=== PATIENT | female | born 1960 | race Caucasian/White ===

== ENCOUNTER → 2017-04-09 | Outpatient (CLI) | payer BC, OTHER ==
--- NOTE | 2017-04-09 14:50 | XR ---
EXAMINATION TYPE: XR knee complete RT DATE OF EXAM: 04/09/2017 CLINICAL HISTORY: pain TECHNIQUE: Three views of the right knee are obtained. COMPARISON: None. FINDINGS: There is no acute fracture/dislocation. The tri-compartment joint spaces mildly narrowing noted at the medial tibiofemoral joint space and patellofemoral joint space. Mild intracondylar spur formation as well as spur formation about the margins of the femoral condyles. The overlying soft ti ssue appears unremarkable. IMPRESSION: There is no acute fracture or dislocation.ICD 10 NO FRACTURE, INITIAL EVALUATION
--- NOTE | 2017-04-09 14:50 | XR ---
EXAMINATION TYPE: XR pelvis AP view DATE OF EXAM: 04/09/2017 CLINICAL HISTORY: pain TECHNIQUE: Single view the pelvis is submitted. FINDINGS: No evidence for fracture, dislocation or bony lesion. Joint spaces are well-preserved. S I joints appear symmetric. IMPRESSION: 1. No acute fracture or dislocation seen. ICD 10 NO FRACTURE, INITIAL EVALUATION
== END | disposition home or self-care (01) ==
LOC: RADXRMAIN 14:18
PROVIDERS: ATTEND Emergency Medicine
DX: S83.91XA Sprain of unspecified site of right knee, initial encounter (principal); S80.01XA Contusion of right knee, initial encounter; S30.0XXA Contusion of lower back and pelvis, initial encounter
CPT/HCPCS: 72170

== ENCOUNTER → 2017-04-15 | Outpatient (CLI) | payer OTHER ==
--- NOTE | 2017-04-17 09:01 | MR ---
EXAMINATION TYPE: MR knee RT wo con DATE OF EXAM: 04/15/2017 COMPARISON: NONE HISTORY: Rt knee injury 1 week ago, fell on ice TECHNIQUE: Multiplanar, multisequence imaging of the right knee is performed without IV contrast. FINDINGS: There is a large Grullon's cyst measuring 5.7 x 3.2 x 2.0 cm within the popliteal fossa There is grade 3 abnormal signal involving the posterior horn of the medial meniscus compatible with a meniscal tear. Abnormal signal within the posterior horn of the lateral meniscus most typical of my xoid degeneration. Patellar and quadriceps tendons intact. Anterior cruciate and posterior cruciate ligaments intact. Lateral collateral ligament is intact. There is increased fluid surrounding the MCL compatible with g rade 1 strain. There is thinning of the patellar cartilage and evidence of focal defects involving both the medial a nd lateral femoral articular cartilage greater medially compatible with chondromalacia. Narrowing of the joint spaces are compatible with osteoarthritis. There is a 1.7 cm area of marrow edema involving the tibial plateau laterally. There is a subchondral fracture without evidence of depression.. IMPRESSION: 1. Marrow edema and findings compatible with subchondral fracture lateral tibial plateau with no evid ence of depression. 2. Osteoarthritis with chondromalacia as discussed above. 3. Posterior horn complex medial meniscal tear. 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 Subtle linear posterior horn lateral meniscus suspected. 5. Large popliteal fossa cyst with maximal dimension of 5.7 cm. 6. Grade 1 MCL sprain with no evidence of tear A [place] message has been communicated to Marcelo Lopez DO via the [employer] system on 04/17/2017 8:58 AM, Message ID [id number].
== END | disposition home or self-care (01) ==
LOC: RADMRIMAIN 21:25
PROVIDERS: ATTEND Emergency Medicine
DX: S83.411D Sprain of medial collateral ligament of right knee, subsequent encounter (principal); S83.231D Complex tear of medial meniscus, current injury, right knee, subsequent encounter; M17.11 Unilateral primary osteoarthritis, right knee; M94.261 Chondromalacia, right knee; M71.21 Synovial cyst of popliteal space [Baker], right knee

== ENCOUNTER → 2018-09-11 | Outpatient (CLI) | payer BC ==
--- NOTE | 2018-09-11 09:30 | US ---
EXAMINATION TYPE: US extremity nonvasc complt LT DATE OF EXAM: 09/11/2018 COMPARISON: NONE CLINICAL HISTORY: Outer Left Thigh, R22.40 swelling/lump. Left lump on thigh TECHNIQUE/FINDINGS: Targeted soft tissue ultrasound was performed of the left thigh in the area of th e palpable abnormality. There is a well circumscribed predominantly hyperechoic lesion seen correspon ding the palpable abnormality measuring 3.6 x 1.2 x 1.6 cm that is superficially located just deep to the skin surface within the subcutaneous tissues superficial to the muscle. No internal complexity i s seen nor internal vascular flow. IMPRESSION: Lipomatous lesion of the left thigh. If there is clinical increase in growth imaging cou ld be performed.
== END | disposition home or self-care (01) ==
LOC: RADUSWWP 07:38
PROVIDERS: ATTEND Nurse Practitioner Family
DX: R22.40 Localized swelling, mass and lump, unspecified lower limb (principal)

== ENCOUNTER → 2018-10-09 | Outpatient (CLI) | payer BC ==
--- NOTE | 2018-10-09 13:29 | MM ---
Reason for exam: screening (asymptomatic). Last mammogram was performed 3 years ago. History: Patient is postmenopausal and has history of other cancer at age 48. Family history of breast cancer in paternal grandmother at age 50. Reductions of both breasts, 2010. Took hormonal contraceptives for 1 year. Took other hormone for 1 month beginning at age 55. Physical Findings: A clinical breast exam by your physician is recommended on an annual basis and results should be correlated with mammographic findings. MG 3D Screening Mammo W/Cad Bilateral CC and MLO view(s) were taken. Prior study comparison: October 13, 2015, bilateral MG 3d screening mammo w/cad. February 01, 2012, right diagnostic mammogram w/CAD. The breast tissue is heterogeneously dense. This may lower the sensitivity of mammography. Finding #1: Architectural distortion in both breasts consistent with known reductions. Finding #2: There are typically benign calcifications in both breasts. There is a chronic nodularity in the left breast. ASSESSMENT: Benign, BI-RAD 2 RECOMMENDATION: Routine screening mammogram of both breasts in 1 year.
== END | disposition home or self-care (01) ==
LOC: RADMAMWWP 07:43
PROVIDERS: ATTEND Family Medicine
DX: Z12.31 Encounter for screening mammogram for malignant neoplasm of breast (principal)
CPT/HCPCS: 77063; 77067

== ENCOUNTER 2018-11-23 17:58 | Emergency (ER) | payer BC ==
--- NOTE | 2018-11-23 18:39 | ED ---
General Adult HPI - General Chief complaint: Upper Respiratory Infection Stated complaint: Bronchopneumonia Time Seen by Provider: 11/23/18 18:16 Source: patient Mode of arrival: ambulatory Limitations: no limitations - History of Present Illness Initial comments: Dictation was produced using [employer] dictation software. please excuse any grammatical, word or spelling errors. Chief Complaint: 58-year-old female presents with dyspnea. History of Present Illness: Enio is a 58-year-old female she has no known comorbidities. 3 days ago she was seen at her primary care physician's office. She was diagnosed with bronchopneumonia given prescription for doxycycline, Mucinex, Ventolin inhaler. Patient states she's been having URI type symptoms including shortness of breath, runny nose and sore throat. Patient was instructed to seek medical attention if her symptoms didn't improve in 2-3 days. Patient states that she does have shortness of breath that feels like it's worse when she is lying flat. As far she knows she does not have a history of cardiac disease or heart failure. He states that she's been having profuse runny nose. He has any lower extremity symptoms. No calf tenderness or calf pain, no popliteal pain or the thigh pain The ROS documented in this emergency department record has been reviewed and confirmed by me. Those systems with pertinent positive or negative responses have been documented in the HPI. All other systems are other negative and/or noncontributory. PHYSICAL EXAM: General Impression: Alert and oriented x3, not in acute distress HEENT: Normocephalic atraumatic, extra-ocular movements intact, pupils equal and reactive to light bilaterally, mucous membranes moist, mild pharyngeal erythema Cardiovascular: Heart regular rate and rhythm, S1&S2 audible, no murmurs, rubs or gallops Chest: Lungs clear to auscultation bilaterally, no rhonchi, no wheeze, no rales Abdomen: Bowel sounds present, abdomen soft, non-tender, non-distended, no organomegaly Musculoskeletal: Pulses present and equal in all extremities, no peripheral edema Motor: no focal deficits noted Neurological: CN II-XII grossly intact, no focal motor or sensory deficits noted Skin: Intact with no visualized rashes Psych: Normal affect and mood ED course: 58 yo F presents with dyspnea. She was recently treated for diagnosis of bronchopneumonia she is given prescription for doxycycline, Ventolin. She's also been taking [id number] cold medicine. Vital signs upon arrival are within acceptable limits. X-rays unremarkable. Prematurity peptide is unremarkable. Patient requested DuoNeb treatment. Patient given DuoNeb with slight improvement of symptoms. Patient's clinical presentation likely secondary to viral URI. Because patient doxycycline persistent symptoms we will change her antibiotics to azithromycin. Patient told to follow-up with primary care physician upon discharge. - Related Data Home Medications Medication Instructions Recorded Confirmed Albuterol Inhaler [Ventolin Hfa 1 - 2 puff INHALATION RT-Q4H PRN 11/23/1811/23 Inhaler] Doxycycline Monohydrate [Monodox] 100 mg PO BID 11/23/18 11/23/18 Guaifen/Dextromethorphan/PE 20 ml PO Q6H PRN 11/23/18 11/23/18 [Mucinex Fast-Max Congest-Cough] methylPREDNISolone [Medrol Dose See Taper PO DIRECTED 11/23/18 11/23/18 Pack] Previous Rx's Medication Instructions Recorded Azithromycin [Zithromax Z-pack] 0 mg PO DIRECTED #6 tab 11/23/18 Allergies Allergy/AdvReac Type Severity Reaction Status Date / Time amoxicillin Allergy Rash/Hives Verified 11/23/18 18:36 Review of Systems ROS Statement: Those systems with pertinent positive or pertinent negative responses have been documented in the HPI. ROS Other: All systems not noted in ROS Statement are negative. Past Medical History Past Medical History: No Reported History History of Any Multi-Drug Resistant Organisms: None Reported Past Surgical History: Section, Orthopedic Surgery Additional Past Surgical History / Comment(s): breast reduction Past Psychological History: No Psychological Hx Reported Smoking Status: Never smoker Past Alcohol Use History: Occasional Past Drug Use History: None Reported General Exam Limitations: no limitations Course Vital Signs 11/23/18 11/23/18 11/23/18 18:09 20:03 20:09 Temperature 98.4 F Pulse Rate 66 69 70 Respiratory 18 Rate Blood Pressure 155/87 O2 Sat by Pulse 96 Oximetry 11/23/18 20:31 Temperature 98.2 F Pulse Rate 81 Respiratory 17 Rate Blood Pressure 135/73 O2 Sat by Pulse 96 Oximetry Medical Decision Making - Lab Data Lab Results 11/23/18 Range/Units 19:00 NT-Pro-B Natriuret Pep 95 pg/mL Disposition Clinical Impression: Common cold Disposition: HOME SELF-CARE Condition: Good Instructions (If sedation given, give patient instructions): Upper Respiratory Infection (ED) Prescriptions: Azithromycin [Zithromax Z-pack] 0 mg PO DIRECTED #6 tab Is patient prescribed a controlled substance at d/c from ED?: No Referrals: José Antonio Tamayo MD [Primary Care Provider] - 1-2 days Time of Disposition: 20:36
[2018-11-23] MEDS ORDERED: IPRATROPIUM-ALBUTEROL 3 ML NEB INHALATION STA (19:28)
--- NOTE | 2018-11-23 19:29 | XR ---
EXAMINATION TYPE: XR chest 2V DATE OF EXAM: 11/23/2018 COMPARISON: 07/25/2014 HISTORY: Chest pain TECHNIQUE: Frontal and lateral views of the chest are obtained. FINDINGS: Heart and mediastinum are normal. Lungs are clear. Diaphragm is normal. Bony thorax is nor mal. IMPRESSION: Normal chest. No change.
[2018-11-23 21:03] VITALS: BP 162/82; PULSE 78; RESP 18; TEMP 98.3
== END 2018-11-23 21:00 | disposition home or self-care (01) ==
LOC: EC 17:58
DX: J00 Acute nasopharyngitis [common cold] (principal); Z98.890 Other specified postprocedural states; Z87.01 Personal history of pneumonia (recurrent); Z79.52 Long term (current) use of systemic steroids; Z88.0 Allergy status to penicillin
CPT/HCPCS: 36415; 71046; 83880; 94640; 99285

== ENCOUNTER → 2018-12-22 | Outpatient (CLI) | payer BC ==
--- NOTE | 2018-12-23 09:07 | US ---
EXAMINATION TYPE: US pelvic complete DATE OF EXAM: 12/22/2018 COMPARISON: NONE CLINICAL HISTORY: R10.2 Pelvic Pain. patient states no pain, noticed pink spots wiping after urinatin g for 1 week, x 2 TECHNIQUE: TA. Transabdominal sonographic images of the pelvis were acquired. Patient did not want TV Date of LMP: 4 years ago EXAM MEASUREMENTS: Uterus: 7.7 x 5.4 x 3.1 cm Endometrial Stripe: 0.6 cm Right Ovary: 2.1 x 2.2 x 2.1 cm Left Ovary: 1.6 x 1.7 x 1.6 cm 1. Uterus: Retroverted wnl 2. Endometrium: wnl 3. Right Ovary: wnl 4. Left Ovary: wnl 5. Bilateral Adnexa: wnl 6. Posterior cul-de-sac: wnl IMPRESSION: Endometrial thickness is upper limits of normal for a postmenopausal female measuring 0.6 cm. Ovaries are slightly atrophic but within normal limits for the patient's age.
== END | disposition home or self-care (01) ==
LOC: RADUSWWP 15:37
PROVIDERS: ATTEND Family Medicine
DX: R10.2 Pelvic and perineal pain (principal); Z78.0 Asymptomatic menopausal state
CPT/HCPCS: 76856

== ENCOUNTER 2019-08-01 16:35 | Emergency (ER) | payer BC ==
[2019-08-01 17:12] LABS: Appearance,Urine Clear (Clear); Bilirubin,Urine Negative (Negative); Blood,Urine Negative (Negative); Color,Urine Light Yellow; Glucose,Urine (UA) Negative (Negative); Ketones,Urine Negative (Negative); Leukocyte Esterase,Urine Negative (Negative); Nitrite,Urine Negative (Negative); PH, Urine 5.5 (5.0-8.0); Protein,Urine Negative (Negative); Specific Gravity,Urine 1.009 (1.001-1.035); Urobilinogen,Urine <2.0 mg/dL (<2.0)
--- NOTE | 2019-08-01 17:23 | ED ---
Fever HPI - General Chief Complaint: Fever Stated Complaint: Fever Time Seen by Provider: 08/01/19 17:02 Source: patient Mode of arrival: ambulatory Limitations: no limitations - History of Present Illness Initial Comments: DD 9-year-old female history of melanoma in remission presents emergency department today for chief complaint of fever. Patient states she's had fever since Saturday of this week. She states that she really had nose associates sympt oms she states the first day she had a very slight headache she denied neck stiffness photophobia nausea vomiting. Patient denied any diarrhea or cough. Patient states she did not have abdominal pain, vaginal discharge or pelvic pain or rashes. Denies recent travel or positive sick contacts. Patient states that she has been working from home. Patient denies chest pain or shortness of breath. Patient denies dysuria urgency or frequency. Patient states he Tmax was on Saturday at 104F, shes states she took a lot of motrin and tylenol, she states she attempted to wean off the tylenol and motrin to see if the fever had resolved last night and it picked up to 100-101F. Patient states she really does not have significant chills, she states at times she has aching sensation in her hands b/l. Denies tick contact. Patient has no additional complaints, and states she doesnt know why she has a fever and that is why she came to the ER today. Remaining ROS (-). Upon arrival patient appears very well, no acute distress. Afebrile, BP elevated. - Related Data Home Medications Medication Instructions Recorded Confirmed Acetaminophen Tab [Tylenol Tab] 1,000 mg PO Q4H PRN 08/01/19 08/01/19 Ibuprofen 400 mg PO Q4H PRN 08/01/19 08/01/19 Allergies Allergy/AdvReac Type Severity Reaction Status Date / Time amoxicillin Allergy Rash/Hives Verified 08/01/19 18:44 Review of Systems ROS Statement: Those systems with pertinent positive or pertinent negative responses have been documented in the HPI. ROS Other: All systems not noted in ROS Statement are negative. Past Medical History Past Medical History: No Reported History, Cancer Additional Past Medical History / Comment(s): melanomia right thigh History of Any Multi-Drug Resistant Organisms: None Reported Past Surgical History: Section, Orthopedic Surgery Additional Past Surgical History / Comment(s): breast reduction Past Psychological History: No Psychological Hx Reported Smoking Status: Never smoker Past Alcohol Use History: Occasional Past Drug Use History: None Reported General Exam - General Exam Comments Initial Comments: General: The patient is awake and alert, in no distress, and does not appear acutely ill. Eye: +3 mm pupils are equal, round and reactive to light, extra-ocular movements are intact. No nystagmus. There is normal conjunctiva bilaterally. No signs of icterus. Ears, nose, mouth and throat: There are moist mucous membranes and no oral lesions. Neck: The neck is supple, there is no tenderness or JVD. Cardiovascular: There is a regular rate and rhythm. No murmur, rub or gallop is appreciated. Respiratory: Lungs are clear to auscultation, respirations are non-labored, breath sounds are equal. No wheezes, stridor, rales, or rhonchi. Gastrointestinal: Soft, non-distended, non-tender abdomen without masses or organomegaly noted. There is no rebound or guarding present. Musculoskeletal: Normal ROM, no tenderness. Strength 5/5. Sensation intact. Pulses equal bilaterally 2+. Neurological: A&O x 3. CN II-XII intact grossly, There are no obvious motor or sensory deficits. Coordination appears grossly intact. Speech is normal. Skin: Skin is warm and dry and no rashes or lesions are noted. No LE edema. Psychiatric: Cooperative, appropriate mood & affect, normal judgment. Limitations: no limitations Course Vital Signs 08/01/19 08/01/19 08/01/19 16:44 16:59 17:48 Temperature 98.5 F 99.0 F Pulse Rate 89 72 Respiratory 18 18 16 Rate Blood Pressure 172/106 166/90 O2 Sat by Pulse 99 97 Oximetry 08/01/19 19:45 Temperature 99.2 F Pulse Rate 78 Respiratory 16 Rate Blood Pressure 154/104 O2 Sat by Pulse 97 Oximetry Medical Decision Making - Medical Decision Making CXR clear. Lungs clear. Heart sounds WNL. No focalizing symptoms. Abdomen soft nontender. No skin complaints or noted abnormalities. Denies vaginal or pelvic concerns. UA unremarkable. Reactive lymphocytes on labs. No nuchal rigidity negative Brudzinski negative Kernig. Headache was 5 days ago resolved, not sudden onset or worse SAHU of life. Patient EKG no acute findings. Troponin (-). Liver enzymes elevated, US (-) for duct dilation/stone/infection. After discussing case wtih Dr. Staton we will test patient for Covid and have her f/u with PCP. Rh factor pending (obtained secondary to some hand aching). Patient is aware of importance of f/u and return for worsening or persistent symptoms or development of focal symptoms. Patient discharged appearing well. BP elevated but she states it high at Dr. Office, asymptomatic therefore will have keep log and f/u wtih PCP. - Lab Data Result diagrams: 08/01/19 17:36 08/01/19 17:36 Lab Results 08/01/19 08/01/19 08/01/19 Range/Units 17:02 17:36 17:36 WBC 5.8 (3.8-10.6) k/uL RBC 5.26 (3.80-5.40) m/uL Hgb 14.7 (11.4-16.0) gm/dL Hct 43.7 (34.0-46.0) % MCV 83.2 (80.0-100.0) fL MCH 28.0 (25.0-35.0) pg MCHC 33.6 (31.0-37.0) g/dL RDW 14.4 (11.5-15.5) % Plt Count 159 (150-450) k/uL Neutrophils % (Manual) 35 % Band Neutrophils % 9 % Lymphocytes % (Manual) 44 % Monocytes % (Manual) 10 % Eosinophils % (Manual) 2 % Neutrophils # (Manual) 2.50 (1.3-7.7) k/uL Lymphocytes # (Manual) 2.55 (1.0-4.8) k/uL Monocytes # (Manual) 0.58 (0-1.0) k/uL Eosinophils # (Manual) 0.12 (0-0.7) k/uL Nucleated RBCs 0 (0-0) /100 WBC Manual Slide Review Performed Reactive Lymphocytes Present Sodium 136 L (137-145) mmol/L Potassium 4.4 (3.5-5.1) mmol/L Chloride 101 (98-107) mmol/L Carbon Dioxide 27 (22-30) mmol/L Anion Gap 8 mmol/L BUN 11 (7-17) mg/dL Creatinine 0.62 (0.52-1.04) mg/dL Est GFR (CKD-EPI)AfAm >90 (>60 ml/min/1.73 sqM) Est GFR (CKD-EPI)NonAf >90 (>60 ml/min/1.73 sqM) Glucose 104 H (74-99) mg/dL Plasma Lactic Acid Dorian (0.7-2.0) mmol/L Calcium 9.2 (8.4-10.2) mg/dL Total Bilirubin 0.4 (0.2-1.3) mg/dL AST 102 H (14-36) U/L ALT 101 H (4-34) U/L Alkaline Phosphatase 131 H (38-126) U/L Troponin I (0.000-0.034) ng/mL C-Reactive Protein 36.1 H (<10.0) mg/L Total Protein 7.8 (6.3-8.2) g/dL Albumin 4.4 (3.5-5.0) g/dL Urine Color Light Yellow Urine Appearance Clear (Clear) Urine pH 5.5 (5.0-8.0) Ur Specific [place] 1.009 (1.001-1.035) Urine Protein Negative (Negative) Urine Glucose (UA) Negative (Negative) Urine Ketones Negative (Negative) Urine Blood Negative (Negative) Urine Nitrite Negative (Negative) Urine Bilirubin Negative (Negative) Urine Urobilinogen <2.0 (<2.0) mg/dL Ur Leukocyte Esterase Negative (Negative) Heterophile Antibody (Negative) 08/01/19 08/01/19 08/01/19 Range/Units 17:36 17:36 17:36 WBC (3.8-10.6) k/uL RBC (3.80-5.40) m/uL Hgb (11.4-16.0) gm/dL Hct (34.0-46.0) % MCV (80.0-100.0) fL MCH (25.0-35.0) pg MCHC (31.0-37.0) g/dL RDW (11.5-15.5) % Plt Count (150-450) k/uL Neutrophils % (Manual) % Band Neutrophils % % Lymphocytes % (Manual) % Monocytes % (Manual) % Eosinophils % (Manual) % Neutrophils # (Manual) (1.3-7.7) k/uL Lymphocytes # (Manual) (1.0-4.8) k/uL Monocytes # (Manual) (0-1.0) k/uL Eosinophils # (Manual) (0-0.7) k/uL Nucleated RBCs (0-0) /100 WBC Manual Slide Review Reactive Lymphocytes Sodium (137-145) mmol/L Potassium (3.5-5.1) mmol/L Chloride (98-107) mmol/L Carbon Dioxide (22-30) mmol/L Anion Gap mmol/L BUN (7-17) mg/dL Creatinine (0.52-1.04) mg/dL Est GFR (CKD-EPI)AfAm (>60 ml/min/1.73 sqM) Est GFR (CKD-EPI)NonAf (>60 ml/min/1.73 sqM) Glucose (74-99) mg/dL Plasma Lactic Acid Dorian 1.2 (0.7-2.0) mmol/L Calcium (8.4-10.2) mg/dL Total Bilirubin (0.2-1.3) mg/dL AST (14-36) U/L ALT (4-34) U/L Alkaline Phosphatase (38-126) U/L Troponin I <0.012 (0.000-0.034) ng/mL C-Reactive Protein (<10.0) mg/L Total Protein (6.3-8.2) g/dL Albumin (3.5-5.0) g/dL Urine Color Urine Appearance (Clear) Urine pH (5.0-8.0) Ur Specific [place] (1.001-1.035) Urine Protein (Negative) Urine Glucose (UA) (Negative) Urine Ketones (Negative) Urine Blood (Negative) Urine Nitrite (Negative) Urine Bilirubin (Negative) Urine Urobilinogen (<2.0) mg/dL Ur Leukocyte Esterase (Negative) Heterophile Antibody Negative (Negative) Disposition Clinical Impression: Fever of unknown origin, High blood pressure, Elevated liver enzymes Disposition: HOME SELF-CARE Condition: Good Instructions (If sedation given, give patient instructions): Fever in Adults (ED) Additional Instructions: Please use medication as discussed. Please follow-up with family doctor in the next 24-48 hours, would like repeat labs at this time. Please return to emergency room if the symptoms increase or worsen or for any other concerns. Is patient prescribed a controlled substance at d/c from ED?: No Referrals: José Antonio Tamayo MD [Primary Care Provider] - 1-2 days Time of Disposition: 19:36
[2019-08-01 18:05] LABS: ALT 101 U/L (4-34); AST 102 U/L (14-36); African American GFR (CKD) >90 (>60 ml/min/1.73 sqM); Albumin 4.4 g/dL (3.5-5.0); Alkaline Phosphatase 131 U/L (38-126); Anion Gap 8 mmol/L; Blood Urea Nitrogen 11 mg/dL (7-17); C Reactive Protein 36.1 mg/L (<10.0); Calcium 9.2 mg/dL (8.4-10.2); Carbon Dioxide 27 mmol/L (22-30); Chloride 101 mmol/L (98-107); Glucose 104 mg/dL (74-99); Non-African American GFR(CKD) >90 (>60 ml/min/1.73 sqM); Potassium 4.4 mmol/L (3.5-5.1); Sodium 136 mmol/L (137-145); Total Bilirubin 0.4 mg/dL (0.2-1.3); Total Protein 7.8 g/dL (6.3-8.2)
[2019-08-01 18:08] LABS: HCT 43.7 % (34.0-46.0); HGB 14.7 gm/dL (11.4-16.0); MCHC 33.6 g/dL (31.0-37.0); MCV 83.2 fL (80.0-100.0); Mean Platelet Volume 6.9; Platelet Count 159 k/uL (150-450); RBC 5.26 m/uL (3.80-5.40); RDW 14.4 % (11.5-15.5); WBC 5.8 k/uL (3.8-10.6)
[2019-08-01 18:33] LABS: Band Neutrophils % 9 %; Eosinophils # (M) 0.12 k/uL (0-0.7); Lymphocytes # (M) 2.55 k/uL (1.0-4.8); Monocytes # (M) 0.58 k/uL (0-1.0); Neutrophils % (M) 35 %; Nucleated Red Blood Cells 0 /100 WBC (0-0); Reactive Lymphocytes Present; Total Cells Counted 100
[2019-08-01] MEDS ORDERED: ACETAMINOPHEN TAB 325 MG TAB PO STA (18:49)
--- NOTE | 2019-08-01 18:56 | XR ---
EXAMINATION TYPE: XR chest 2V DATE OF EXAM: 08/01/2019 COMPARISON: 11/23/2018 HISTORY: Fever. Weakness TECHNIQUE: 2 views FINDINGS: Heart and mediastinum are normal. Lungs are clear. Diaphragm is normal. Bony thorax appears normal. IMPRESSION: Normal chest. No change.
[2019-08-01 19:10] VITALS: RESP 16
--- NOTE | 2019-08-01 19:31 | US ---
EXAMINATION TYPE: US abdomen limited DATE OF EXAM: 08/01/2019 COMPARISON: NONE CLINICAL HISTORY: RUQ, elevated enzymes, fever. RUQ pain. Patient states having a fever for 7 days EXAM MEASUREMENTS: Liver Length: 19.2 cm Gallbladder Wall: 0.2 cm CBD: 0.3 cm Right Kidney: 10.0 x 5.6 x 5.3 cm Pancreas: Appears echogenic, limited visualization of tail due to overlying bowel gas Liver: Appears enlarged in size. Gallbladder: No stones seen Evidence for sonographic Marrero's sign: neg CBD: wnl Right Kidney: No hydronephrosis or masses seen IMPRESSION: Negative right upper quadrant abdominal sonogram. No gallstones or dilated ducts. No free fluid.
[2019-08-01 19:59] VITALS: BP 154/104; PULSE 78; TEMP 99.2
== END 2019-08-01 19:58 | disposition home or self-care (01) ==
LOC: EC 16:35
DX: R50.9 Fever, unspecified (principal); R03.0 Elevated blood-pressure reading, without diagnosis of hypertension; R74.8 Abnormal levels of other serum enzymes; Z20.828 Contact with and (suspected) exposure to other viral communicable diseases; Z85.820 Personal history of malignant melanoma of skin; Z88.0 Allergy status to penicillin
CPT/HCPCS: 36415; 93005; 80053; 83605; 84484; 85025; 86140; 86308; 86431; 81003; 87040; 71046; 76705; 99284; U0003

== ENCOUNTER 2019-08-05 14:59 | Inpatient (IN) | payer BC ==
[2019-08-05] MEDS ORDERED: KETOROLAC 30 MG/ML 1 ML VIAL IVP STA (15:28)
[2019-08-05] MEDS ORDERED: PANTOPRAZOLE 40 MG/10 ML VIAL IVP STA (15:28)
[2019-08-05] MEDS ORDERED: SODIUM CHLORIDE 0.9% 1,000 ML IV STA ×2 (15:28)
[2019-08-05] MEDS ORDERED: ONDANSETRON 4 MG/2 ML VIAL IVP STA (15:28)
[2019-08-05] MEDS ORDERED: HYDROmorphone 0.5 MG/0.5 ML SYRINGE IVP STA (15:28)
--- NOTE | 2019-08-05 15:32 | ED ---
Abdominal Pain HPI - General Source: patient, RN notes reviewed, old records reviewed Mode of arrival: ambulatory Limitations: no limitations <Radha Rogers - Last Filed: 08/05/19 18:49> <Nika Staton - Last Filed: 08/10/19 04:11> - General Chief Complaint: Abdominal Pain Stated Complaint: Revisit Fever Time Seen by Provider: 08/05/19 15:08 - History of Present Illness Initial Comments: Patient is a 59-year-old female who presents emergency room today for reevaluation for persistent fever for 9 days. She also is complaining of right upper quadrant abdominal pain. Patient reports that she was initially seen emergency Department chief concern she had Coban. She was tested negative. She also reported that she had elevated liver enzymes at that time. She reports that the right upper quadrant pain is worse proximally an hour after eating and radiation towards her back. She denies any associated chest pain or shortness of breath at this time. (Radha Rogers) - Related Data Home Medications Medication Instructions Recorded Confirmed Ibuprofen 400 mg PO Q4H PRN 08/01/19 08/05/19 Allergies Allergy/AdvReac Type Severity Reaction Status Date / Time amoxicillin Allergy Rash/Hives Verified 08/05/19 19:58 Review of Systems ROS Other: All systems not noted in ROS Statement are negative. <Radha Rogers - Last Filed: 08/05/19 18:49> ROS Other: All systems not noted in ROS Statement are negative. <Nika Staton - Last Filed: 08/10/19 04:11> ROS Statement: Those systems with pertinent positive or pertinent negative responses have been documented in the HPI. Past Medical History Past Medical History: No Reported History, Cancer Additional Past Medical History / Comment(s): melanomia right thigh History of Any Multi-Drug Resistant Organisms: None Reported Past Surgical History: Section, Orthopedic Surgery Additional Past Surgical History / Comment(s): breast reduction Past Psychological History: No Psychological Hx Reported Smoking Status: Never smoker Past Alcohol Use History: Occasional Past Drug Use History: None Reported <Radha Rogers - Last Filed: 08/05/19 18:49> General Exam Limitations: no limitations General appearance: alert, in no apparent distress Head exam: Present: atraumatic, normocephalic, normal inspection Eye exam: Present: normal appearance, PERRL, EOMI. Absent: scleral icterus, conjunctival injection, periorbital swelling ENT exam: Present: normal exam, mucous membranes moist Neck exam: Present: normal inspection. Absent: tenderness, meningismus, lymphadenopathy Respiratory exam: Present: normal lung sounds bilaterally. Absent: respiratory distress, wheezes, rales, rhonchi, stridor Cardiovascular Exam: Present: regular rate, normal rhythm, normal heart sounds. Absent: systolic murmur, diastolic murmur, rubs, gallop, clicks GI/Abdominal exam: Present: tenderness (Right upper quadrant tenderness), normal bowel sounds. Absent: distended, guarding, rebound, rigid Extremities exam: Present: normal inspection Back exam: Present: normal inspection Neurological exam: Present: alert, oriented X3, CN II-XII intact Psychiatric exam: Present: normal affect, normal mood Skin exam: Present: warm, dry, intact, normal color. Absent: rash <Radha Rogers - Last Filed: 08/05/19 18:49> - General Exam Comments Initial Comments: 59-year-old female. Alert and oriented 3. (Radha Rogers) Course Vital Signs 08/05/19 08/05/19 08/05/19 15:01 18:40 18:43 Temperature 99.3 F 98.5 F Pulse Rate 84 82 Pulse Rate [ Pulse Oximetery ] Respiratory 18 16 Rate Blood Pressure 145/83 137/82 Blood Pressure [Left Arm] O2 Sat by Pulse 94 L 97 Oximetry 08/05/19 19:06 Temperature 100 F H Pulse Rate Pulse Rate [ 92 Pulse Oximetery ] Respiratory 19 Rate Blood Pressure Blood Pressure 131/61 [Left Arm] O2 Sat by Pulse 97 Oximetry Medical Decision Making - Lab Data Result diagrams: 08/05/19 16:00 08/05/19 16:00 - Radiology Data Radiology results: report reviewed <Radha Rogers - Last Filed: 08/05/19 18:49> - Lab Data Result diagrams: 08/09/19 06:51 08/09/19 06:51 <Nika Staton - Last Filed: 08/10/19 04:11> - Medical Decision Making This is a 59-year-old female who presents emergency department today for 9 days of fevers, with complaints of right upper quadrant abdominal pain. Patient's liver enzymes are 3 times from her visit on 07/31. At this time patient's CBC is unremarkable. She had negative Coban swab at that time. Patient had CT on pe lvis which showed inflammatory changes around the liver with no ductal dilation. I did add an acute hepatitis panel. The patient's consistent right upper quadrant pain and persistent fevers discussed admitting the Patient for further evaluation. I discussed the case with Dr. Espinal and Dr. Staton whom agree. (Radha Rogers) I was available for consultation in the emergency department. The history and physical exam were done by the midlevel provider. I was consulted for this patients care. I reviewed the case with the midlevel provider and based on their presentation of the patient, I agree with the assessment, medical decision making and plan of care as documented. Chart was dictated using [employer] dictation software. Attempts were made to correct any dictation errors however some typographical errors may persist. (Nika Staton) - Lab Data Lab Results 08/05/19 08/05/19 08/05/19 Range/Units 16:00 16:00 16:00 WBC 6.4 (3.8-10.6) k/uL RBC 4.82 (3.80-5.40) m/uL Hgb 13.3 (11.4-16.0) gm/dL Hct 40.9 (34.0-46.0) % MCV 84.8 (80.0-100.0) fL MCH 27.6 (25.0-35.0) pg MCHC 32.6 (31.0-37.0) g/dL RDW 15.1 (11.5-15.5) % Plt Count 189 (150-450) k/uL Neutrophils % (Manual) 40 % Lymphocytes % (Manual) 50 % Monocytes % (Manual) 8 % Eosinophils % (Manual) 2 % Neutrophils # (Manual) 2.56 (1.3-7.7) k/uL Lymphocytes # (Manual) 3.20 (1.0-4.8) k/uL Monocytes # (Manual) 0.51 (0-1.0) k/uL Eosinophils # (Manual) 0.13 (0-0.7) k/uL Nucleated RBCs 0 (0-0) /100 WBC Manual Slide Review Performed Pathologist Review See comment A PT 10.0 (9.0-12.0) sec INR 1.0 (<1.2) APTT 26.7 (22.0-30.0) sec D-Dimer 1.15 H (<0.60) mg/L FEU Sodium (137-145) mmol/L Potassium (3.5-5.1) mmol/L Chloride (98-107) mmol/L Carbon Dioxide (22-30) mmol/L Anion Gap mmol/L BUN (7-17) mg/dL Creatinine (0.52-1.04) mg/dL Est GFR (CKD-EPI)AfAm (>60 ml/min/1.73 sqM) Est GFR (CKD-EPI)NonAf (>60 ml/min/1.73 sqM) Glucose (74-99) mg/dL Plasma Lactic Acid Dorian (0.7-2.0) mmol/L Calcium (8.4-10.2) mg/dL Total Bilirubin (0.2-1.3) mg/dL AST (14-36) U/L ALT (4-34) U/L Alkaline Phosphatase (38-126) U/L Total Protein (6.3-8.2) g/dL Albumin (3.5-5.0) g/dL Amylase (30-110) U/L Lipase (23-300) U/L Urine Color Yellow Urine Appearance Clear (Clear) Urine pH 6.5 (5.0-8.0) Ur Specific [place] 1.017 (1.001-1.035) Urine Protein Trace H (Negative) Urine Glucose (UA) Negative (Negative) Urine Ketones Negative (Negative) Urine Blood Negative (Negative) Urine Nitrite Negative (Negative) Urine Bilirubin Negative (Negative) Urine Urobilinogen 2.0 (<2.0) mg/dL Ur Leukocyte Esterase Negative (Negative) Acetaminophen ug/mL Coronavirus (PCR) (Not Detected) CMV IgG Ab (Non-Reactive) CMV IgM Ab (Non-Reactive) EBV Capsid Ag IgG Ab AI EBV Capsid Ag IgG Intrp (NEGATIVE) EBV Capsid Ag IgM Ab AI EBV Capsid Ag IgM Intrp (NEGATIVE) EBV Early Antigen IgG AI EBV EA IgG Ab Interp (NEGATIVE) EBV Nuclear Ag IgG Ab AI EBV Nuc Ag IgG Interp (NEGATIVE) Hepatitis A IgM Ab Hep Bs Antigen (Non-Reactive) Hep B Core IgM Ab (Non-Reactive) Hep C IgG Ab (Non-Reactive) Heterophile Antibody (Negative) 08/05/19 08/05/19 08/05/19 Range/Units 16:00 16:00 16:00 WBC (3.8-10.6) k/uL RBC (3.80-5.40) m/uL Hgb (11.4-16.0) gm/dL Hct (34.0-46.0) % MCV (80.0-100.0) fL MCH (25.0-35.0) pg MCHC (31.0-37.0) g/dL RDW (11.5-15.5) % Plt Count (150-450) k/uL Neutrophils % (Manual) % Lymphocytes % (Manual) % Monocytes % (Manual) % Eosinophils % (Manual) % Neutrophils # (Manual) (1.3-7.7) k/uL Lymphocytes # (Manual) (1.0-4.8) k/uL Monocytes # (Manual) (0-1.0) k/uL Eosinophils # (Manual) (0-0.7) k/uL Nucleated RBCs (0-0) /100 WBC Manual Slide Review Pathologist Review PT (9.0-12.0) sec INR (<1.2) APTT (22.0-30.0) sec D-Dimer (<0.60) mg/L FEU Sodium 135 L (137-145) mmol/L Potassium 4.4 (3.5-5.1) mmol/L Chloride 102 (98-107) mmol/L Carbon Dioxide 26 (22-30) mmol/L Anion Gap 7 mmol/L BUN 11 (7-17) mg/dL Creatinine 0.67 (0.52-1.04) mg/dL Est GFR (CKD-EPI)AfAm >90 (>60 ml/min/1.73 sqM) Est GFR (CKD-EPI)NonAf >90 (>60 ml/min/1.73 sqM) Glucose 105 H (74-99) mg/dL Plasma Lactic Acid Dorian 1.0 (0.7-2.0) mmol/L Calcium 8.7 (8.4-10.2) mg/dL Total Bilirubin 0.8 (0.2-1.3) mg/dL AST 324 H (14-36) U/L ALT 382 H (4-34) U/L Alkaline Phosphatase 237 H (38-126) U/L Total Protein 7.5 (6.3-8.2) g/dL Albumin 4.0 (3.5-5.0) g/dL Amylase 48 (30-110) U/L Lipase 175 (23-300) U/L Urine Color Urine Appearance (Clear) Urine pH (5.0-8.0) Ur Specific [place] (1.001-1.035) Urine Protein (Negative) Urine Glucose (UA) (Negative) Urine Ketones (Negative) Urine Blood (Negative) Urine Nitrite (Negative) Urine Bilirubin (Negative) Urine Urobilinogen (<2.0) mg/dL Ur Leukocyte Esterase (Negative) Acetaminophen ug/mL Coronavirus (PCR) (Not Detected) CMV IgG Ab (Non-Reactive) CMV IgM Ab (Non-Reactive) EBV Capsid Ag IgG Ab AI EBV Capsid Ag IgG Intrp (NEGATIVE) EBV Capsid Ag IgM Ab AI EBV Capsid Ag IgM Intrp (NEGATIVE) EBV Early Antigen IgG AI EBV EA IgG Ab Interp (NEGATIVE) EBV Nuclear Ag IgG Ab AI EBV Nuc Ag IgG Interp (NEGATIVE) Hepatitis A IgM Ab Hep Bs Antigen Non-Reactive (Non-Reactive) Hep B Core IgM Ab Non-Reactive (Non-Reactive) Hep C IgG Ab Non-Reactive (Non-Reactive) Heterophile Antibody (Negative) 08/05/19 08/05/19 08/05/19 Range/Units 16:00 17:51 19:11 WBC (3.8-10.6) k/uL RBC (3.80-5.40) m/uL Hgb (11.4-16.0) gm/dL Hct (34.0-46.0) % MCV (80.0-100.0) fL MCH (25.0-35.0) pg MCHC (31.0-37.0) g/dL RDW (11.5-15.5) % Plt Count (150-450) k/uL Neutrophils % (Manual) % Lymphocytes % (Manual) % Monocytes % (Manual) % Eosinophils % (Manual) % Neutrophils # (Manual) (1.3-7.7) k/uL Lymphocytes # (Manual) (1.0-4.8) k/uL Monocytes # (Manual) (0-1.0) k/uL Eosinophils # (Manual) (0-0.7) k/uL Nucleated RBCs (0-0) /100 WBC Manual Slide Review Pathologist Review PT (9.0-12.0) sec INR (<1.2) APTT (22.0-30.0) sec D-Dimer (<0.60) mg/L FEU Sodium (137-145) mmol/L Potassium (3.5-5.1) mmol/L Chloride (98-107) mmol/L Carbon Dioxide (22-30) mmol/L Anion Gap mmol/L BUN (7-17) mg/dL Creatinine (0.52-1.04) mg/dL Est GFR (CKD-EPI)AfAm (>60 ml/min/1.73 sqM) Est GFR (CKD-EPI)NonAf (>60 ml/min/1.73 sqM) Glucose (74-99) mg/dL Plasma Lactic Acid Dorian (0.7-2.0) mmol/L Calcium (8.4-10.2) mg/dL Total Bilirubin (0.2-1.3) mg/dL AST (14-36) U/L ALT (4-34) U/L Alkaline Phosphatase (38-126) U/L Total Protein (6.3-8.2) g/dL Albumin (3.5-5.0) g/dL Amylase (30-110) U/L Lipase (23-300) U/L Urine Color Urine Appearance (Clear) Urine pH (5.0-8.0) Ur Specific [place] (1.001-1.035) Urine Protein (Negative) Urine Glucose (UA) (Negative) Urine Ketones (Negative) Urine Blood (Negative) Urine Nitrite (Negative) Urine Bilirubin (Negative) Urine Urobilinogen (<2.0) mg/dL Ur Leukocyte Esterase (Negative) Acetaminophen ug/mL Coronavirus (PCR) Not Detected (Not Detected) CMV IgG Ab (Non-Reactive) CMV IgM Ab (Non-Reactive) EBV Capsid Ag IgG Ab AI EBV Capsid Ag IgG Intrp (NEGATIVE) EBV Capsid Ag IgM Ab AI EBV Capsid Ag IgM Intrp (NEGATIVE) EBV Early Antigen IgG AI EBV EA IgG Ab Interp (NEGATIVE) EBV Nuclear Ag IgG Ab AI EBV Nuc Ag IgG Interp (NEGATIVE) Hepatitis A IgM Ab NEGATIVE Hep Bs Antigen (Non-Reactive) Hep B Core IgM Ab (Non-Reactive) Hep C IgG Ab (Non-Reactive) Heterophile Antibody Negative (Negative) 08/06/19 08/06/19 08/06/19 Range/Units 10:28 10:28 10:28 WBC (3.8-10.6) k/uL RBC (3.80-5.40) m/uL Hgb (11.4-16.0) gm/dL Hct (34.0-46.0) % MCV (80.0-100.0) fL MCH (25.0-35.0) pg MCHC (31.0-37.0) g/dL RDW (11.5-15.5) % Plt Count (150-450) k/uL Neutrophils % (Manual) % Lymphocytes % (Manual) % Monocytes % (Manual) % Eosinophils % (Manual) % Neutrophils # (Manual) (1.3-7.7) k/uL Lymphocytes # (Manual) (1.0-4.8) k/uL Monocytes # (Manual) (0-1.0) k/uL Eosinophils # (Manual) (0-0.7) k/uL Nucleated RBCs (0-0) /100 WBC Manual Slide Review Pathologist Review PT (9.0-12.0) sec INR (<1.2) APTT (22.0-30.0) sec D-Dimer (<0.60) mg/L FEU Sodium (137-145) mmol/L Potassium (3.5-5.1) mmol/L Chloride (98-107) mmol/L Carbon Dioxide (22-30) mmol/L Anion Gap mmol/L BUN (7-17) mg/dL Creatinine (0.52-1.04) mg/dL Est GFR (CKD-EPI)AfAm (>60 ml/min/1.73 sqM) Est GFR (CKD-EPI)NonAf (>60 ml/min/1.73 sqM) Glucose (74-99) mg/dL Plasma Lactic Acid Dorian (0.7-2.0) mmol/L Calcium (8.4-10.2) mg/dL Total Bilirubin (0.2-1.3) mg/dL AST (14-36) U/L ALT (4-34) U/L Alkaline Phosphatase (38-126) U/L Total Protein (6.3-8.2) g/dL Albumin (3.5-5.0) g/dL Amylase (30-110) U/L Lipase (23-300) U/L Urine Color Urine Appearance (Clear) Urine pH (5.0-8.0) Ur Specific [place] (1.001-1.035) Urine Protein (Negative) Urine Glucose (UA) (Negative) Urine Ketones (Negative) Urine Blood (Negative) Urine Nitrite (Negative) Urine Bilirubin (Negative) Urine Urobilinogen (<2.0) mg/dL Ur Leukocyte Esterase (Negative) Acetaminophen <10.0 ug/mL Coronavirus (PCR) (Not Detected) CMV IgG Ab Reactive H (Non-Reactive) CMV IgM Ab Reactive H (Non-Reactive) EBV Capsid Ag IgG Ab >8.0 AI EBV Capsid Ag IgG Intrp POSITIVE H (NEGATIVE) EBV Capsid Ag IgM Ab <0.2 AI EBV Capsid Ag IgM Intrp NEGATIVE (NEGATIVE) EBV Early Antigen IgG <0.2 AI EBV EA IgG Ab Interp NEGATIVE (NEGATIVE) EBV Nuclear Ag IgG Ab 3.4 AI EBV Nuc Ag IgG Interp POSITIVE H (NEGATIVE) Hepatitis A IgM Ab Hep Bs Antigen (Non-Reactive) Hep B Core IgM Ab (Non-Reactive) Hep C IgG Ab (Non-Reactive) Heterophile Antibody (Negative) 08/05/19 17:39 EKG performed at 1632 shows normal sinus rhythm nonspecific ST and malate. Ventricular rate of 79 beats were minute. [place] interval is 144 ms. QS duration is 82 ms. QT QTc is 380/435 ms. (Radha Rogers) - Radiology Data CT chest angio is negative for acute pulmonary embolus. No suspicious acute pulmonary process. CT shows mild diffuse fatty infiltration of the liver without suspicious mass or ductal dilation. No surrounding ascites. Splenomegaly is present which may warrant further clinical workup. No suspicious acute intra-abdominal process. Nonspecific 2.5 cm left adrenal mass consider follow-up on nonemergent adrenal protocol CT or MRI to rule out malignant etiology. (Radha Rogers) Disposition Is patient prescribed a controlled substance at d/c from ED?: No Time of Disposition: 18:53 <Radha Rogers - Last Filed: 08/05/19 18:49> <Nika Staton - Last Filed: 08/10/19 04:11> Clinical Impression: Fever, Elevated liver enzymes, Splenomegaly Disposition: ADMITTED IP TO THIS HOSP Condition: Stable
[2019-08-05 16:13] LABS: Appearance,Urine Clear (Clear); Bilirubin,Urine Negative (Negative); Blood,Urine Negative (Negative); Color,Urine Yellow; Glucose,Urine (UA) Negative (Negative); Ketones,Urine Negative (Negative); Leukocyte Esterase,Urine Negative (Negative); Nitrite,Urine Negative (Negative); PH, Urine 6.5 (5.0-8.0); Protein,Urine Trace (Negative); Specific Gravity,Urine 1.017 (1.001-1.035)
[2019-08-05 16:23] LABS: ALT 382 U/L (4-34); AST 324 U/L (14-36); African American GFR (CKD) >90 (>60 ml/min/1.73 sqM); Alkaline Phosphatase 237 U/L (38-126); Amylase 48 U/L (30-110); Anion Gap 7 mmol/L; Blood Urea Nitrogen 11 mg/dL (7-17); Calcium 8.7 mg/dL (8.4-10.2); Carbon Dioxide 26 mmol/L (22-30); Chloride 102 mmol/L (98-107); Glucose 105 mg/dL (74-99); Non-African American GFR(CKD) >90 (>60 ml/min/1.73 sqM); Potassium 4.4 mmol/L (3.5-5.1); Sodium 135 mmol/L (137-145); Total Bilirubin 0.8 mg/dL (0.2-1.3); Total Protein 7.5 g/dL (6.3-8.2)
[2019-08-05 16:24] LABS: HCT 40.9 % (34.0-46.0); HGB 13.3 gm/dL (11.4-16.0); MCH 27.6 pg (25.0-35.0); MCHC 32.6 g/dL (31.0-37.0); MCV 84.8 fL (80.0-100.0); Mean Platelet Volume 7.2; Platelet Count 189 k/uL (150-450); RBC 4.82 m/uL (3.80-5.40); RDW 15.1 % (11.5-15.5); WBC 6.4 k/uL (3.8-10.6)
[2019-08-05 16:29] LABS: Partial Thromboplastin Time 26.7 sec (22.0-30.0)
[2019-08-05 16:38] LABS: D-Dimer 1.15 mg/L FEU (<0.60)
[2019-08-05 16:42] LABS: Eosinophils # (M) 0.13 k/uL (0-0.7); Monocytes # (M) 0.51 k/uL (0-1.0); Neutrophils # (M) 2.56 k/uL (1.3-7.7); Neutrophils % (M) 40 %; Nucleated Red Blood Cells 0 /100 WBC (0-0); Total Cells Counted 100
--- NOTE | 2019-08-05 17:36 | CT ---
EXAMINATION TYPE: CT chest angio for PE DATE OF EXAM: 08/05/2019 COMPARISON: Chest x-ray 3 days ago. HISTORY: Elevated d-dimer. Fever. CT DLP: 593.5 mGycm. Automated Exposure Control for Dose Reduction was Utilized. CONTRAST: CTA scan of the thorax is performed with IV Contrast, patient injected with 100 mL of Isovue 370, pul monary embolism protocol. MIP Images are created on CT scanner and reviewed. FINDINGS: LUNGS: Some dependent atelectasis bilateral lower lungs. Slightly suboptimal as there is some respira tory motion artifact limiting evaluation for subcentimeter nodules. No suspicious focal consolidation or groundglass opacity is seen. There is no pleural effusion or pneumothorax seen bilaterally. The tracheobronchial tree is patent. MEDIASTINUM: There is satisfactory enhancement of the pulmonary artery and its branches, there is no CT evidence for pulmonary embolism. There are no greater than 1 cm hilar or mediastinal lymph nodes. No cardiomegaly or pericardial effusion is seen. Thoracic aorta shows no aneurysm or dissection. OTHER: Spine is straightened with mild multilevel spurring. Please see same day CT abdomen and pelvis report for complete details on the upper abdomen. IMPRESSION: No CT evidence for acute pulmonary embolism. No suspicious acute pulmonary process.
--- NOTE | 2019-08-05 17:54 | CT ---
EXAMINATION TYPE: CT abdomen pelvis w con DATE OF EXAM: 08/05/2019 HISTORY: Transaminitis. Abdominal pain. CT DLP: 1941.1mGycm Automated Exposure Control for Dose Reduction was Utilized. CONTRAST: CT scan of the abdomen and pelvis is performed with IV Contrast, patient injected with 100 mL of Isov ue 370. COMPARISON: Limited abdominal ultrasound 3 days ago. FINDINGS: LUNG BASES: Please refer to same day CTA thorax report for complete details on the lung bases. LIVER/GB: Liver is heterogeneously hypodense consistent with mild diffuse fatty infiltration. No susp icious masses or ductal dilatation. Liver size upper limits of normal. PANCREAS: No significant abnormality is seen. SPLEEN: Splenomegaly is seen measuring 14.6 cm long axis coronal image 72.. ADRENALS: Nonspecific 2.5 cm left adrenal mass effect image 28. KIDNEYS: Symmetric cortical medullary uptake and excretion without hydronephrosis seen bilaterally. BOWEL: Suboptimal evaluation without enteric contrast. Stomach poorly distended and thus suboptimally evaluated. No suspicious small or large bowel dilatation. A few scattered diverticula in the left an d sigmoid colon. No CT evidence for acute diverticulitis. UTERUS/ADNEXA: Slightly retroverted uterus. Normal-sized bilateral ovaries LYMPH NODES: No greater than 1cm abdominal or pelvic lymph nodes are appreciated. OSSEOUS STRUCTURES: Spine is straightened. Facet arthropathy lower lumbar levels. OTHER: Mild atherosclerotic change of aorta extends into branch vessels. [id number] size umbil ical hernia containing fat and tiny mesenteric vessels axial image 49. IMPRESSION: 1. Mild diffuse fatty infiltration of liver without suspicious mass or ductal dilatation. No surround ing ascites. Splenomegaly is present which may warrant further clinical workup. 2. No suspicious acute intra-abdominal process. 3. Nonspecific 2.5 cm left adrenal mass consider follow-up nonemergent adrenal protocol CT or MRI to rule out malignant etiology.
[2019-08-05 18:38] LABS: Hepatitis A Antibody IgM NEGATIVE
[2019-08-05] MEDS ORDERED: HYDROmorphone 1 MG/ML 1 ML SYRINGE IVP PRN (18:56)
[2019-08-05] MEDS ORDERED: HYDROmorphone 0.5 MG/0.5 ML SYRINGE IVP PRN (18:56)
[2019-08-05] MEDS ORDERED: NALOXONE 0.4 MG/ML 1 ML VIAL IV PRN (18:56)
[2019-08-05] MEDS: SODIUM CHLORIDE 0.9% 1,000 ML IV SCH (19:34)
[2019-08-05] MEDS: ONDANSETRON 4 MG/2 ML VIAL IVP PRN (20:08)
[2019-08-05] MEDS: IBUPROFEN 400 MG TAB PO PRN (23:54)
[2019-08-06 04:26] LABS: Hepatitis B Core IgM Non-Reactive (Non-Reactive); Hepatitis B Surface Antigen Non-Reactive (Non-Reactive); Hepatitis C IgG Antibody Non-Reactive (Non-Reactive)
[2019-08-06] MEDS: SODIUM CHLORIDE 0.9% 1,000 ML IV SCH ×3 (05:51→23:18)
[2019-08-06] MEDS ORDERED: PANTOPRAZOLE 40 MG/10 ML VIAL IV SCH (09:00)
[2019-08-06] MEDS: IBUPROFEN 400 MG TAB PO PRN ×2 (12:45→23:05)
--- NOTE | 2019-08-06 17:47 | P.HPIM ---
History of Present Illness H&P Date: 08/06/19 Chief Complaint: Fever, abdominal pain History of presenting complaint: This is a very pleasant 59-year-old patient of Dr. kramer. Patient presents with tenderness history of having a fever. Denied any respiratory symptoms. We'll repeat 2 days ago developed slight shortness of breath. No cough. Patient's had abdominal pain which she developed on the right upper quadrant for about 4 days she says. Very slight nausea. Not able to keep much food down. No diarrhea. Denies any rash in the body. Patient has rosacea which is slightly more prominent. Patient was here in the ER on July 31. Abdominal ultrasound showed liver to be slightly enlarged. Otherwise no gallstones. Patient had a normal white count count them and also had a normal white count today. Patient has slight elevation of liver enzymes back on July 31. And the liver enzymes as gone up since compared to then. Patient denies any urinary symptoms. No diarrhea. Patient tested negative for COVID 19 PCR. Acute hepatitis screen for A, B, and C was also negative. Heterophile antibody was al so negative. Computed tomography scan of the abdomen shows some diffuse fatty infiltration and some splenomegaly. Denies any photophobia. No neck stiffness. Very slight headache. Review of systems: GEN.: Fever tired EYES: None HEENT: None NECK: None RESPIRATORY: None CARDIOVASCULAR: None GASTROINTESTINAL: As above GENITOURINARY: None MUSCULOSKELETAL: None LYMPHATICS: None HEMATOLOGICAL: None PSYCHIATRY: None NEUROLOGICAL: None Past medical history to include: Melanoma right thigh Social history: . Does not smoke or drink cold. Denies use of recreational drugs. 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 Family history: [place] Physical examination: VITAL SIGNS: 101.6, increased heart rate, 18, height is 60-72, 99% on room air GENERAL: [BMI 40.5, laying in bed slightly uncomfortable. EYES: Pupils equal. Conjunctiva normal. HEENT: External appearance of nose and ears normal, oral cavity grossly normal both the cheeks are flushed with prominent small blood vessels NECK: JVD not raised; masses not palpable. HEART: First and second heart sounds are normal; no edema. LUNGS: Respiratory rate normal; clear to auscultation. ABDOMEN: Soft, right upper quadrant tenderness, no guarding rigidity, liver spleen not palpable, no masses palpable. PSYCH: Alert and oriented x3; mood and affect anxiousl. NEUROLOGICAL: Cranial nerves grossly intact; no facial asymmetry, power and sensation grossly intact. LYMPHATICS: No lymph nodes palpable in the axilla and neck Assessment and plan: -This is a patient presents with 10 day history of fever and increasing right upper quadrant pain. Acute hepatitis panel for A, B, and C is negative. Patient denies any respiratory symptoms. Does not have any diarrhea. No [employer] symptoms. Mild headache itself could just be from fever. Patient has a slightly abnormal CBC differential do need to look at hematological causes of the presentation. Patient has a normal white count. With no left shift. We'll send out the blood work for CMV IgM IgG and also EBV IgM IgG. Consultation is made for GI, infectious disease and hematology. Hold off antibiotics for now. Care was discussed with the patient. It may be noted that patient has bord sanjay hepatomegaly and some splenomegaly. Hence important to look at hematological cause of the presentation. -Morbid obesity BMI 40.5 -Nonalcoholic fatty liver disease -Sepsis, cause of infection unknown Plan: As above. Add Lovenox for DVT prophylaxis. IV fluids. Zofran for nausea. Patient will be made inpatient as patient will be staying in the hospital for at least 2 nights. Past Medical History Past Medical History: No Reported History, Cancer Additional Past Medical History / Comment(s): melanomia right thigh History of Any Multi-Drug Resistant Organisms: None Reported Past Surgical History: Section, Orthopedic Surgery Additional Past Surgical History / Comment(s): breast reduction Past Anesthesia/Blood Transfusion Reactions: No Reported Reaction Past Psychological History: No Psychological Hx Reported Smoking Status: Never smoker Past Alcohol Use History: Occasional Past Drug Use History: None Reported - Past Family History Father Additional Family Medical History / Comment(s): of [place] Mother Additional Family Medical History / Comment(s): of OD. Medications and Allergies Home Medications Medication Instructions Recorded Confirmed Type Acetaminophen Tab [Tylenol Tab] 1,000 mg PO Q4H PRN 08/01/19 08/05/19 History Ibuprofen 400 mg PO Q4H PRN 08/01/19 08/05/19 History Allergies Allergy/AdvReac Type Severity Reaction Status Date / Time amoxicillin Allergy Rash/Hives Verified 08/05/19 19:58 Physical Exam Vitals: Vital Signs Temp Pulse Pulse Resp BP BP Pulse Ox 08/06/19 08:58 14 08/06/19 08:05 99.0 F 80 14 136/65 98 08/06/19 04:30 98.2 F 79 18 114/70 97 08/06/19 03:53 98.6 F 08/05/19 23:55 101.6 F H 90 18 116/72 99 08/05/19 20:00 100 F H 92 19 131/61 97 08/05/19 19:06 100 F H 92 19 131/61 97 08/05/19 18:43 98.5 F 08/05/19 18:40 82 16 137/82 97 08/05/19 15:01 99.3 F 84 18 145/83 94 L Intake and Output 08/05/19 08/06/19 08/06/19 22:59 06:59 14:59 Intake Total 237 600 Balance 237 600 Intake: Oral 237 600 Other: Voiding Method Toilet # Voids 2 3 Weight 107.139 kg Results CBC & Chem 7: 08/05/19 16:00 08/05/19 16:00 Labs: Abnormal Lab Results - Last 24 Hours (Table) 08/05/19 08/05/19 08/05/19 Range/Units 16:00 16:00 16:00 D-Dimer 1.15 H (<0.60) mg/L FEU Sodium 135 L (137-145) mmol/L Glucose 105 H (74-99) mg/dL AST 324 H (14-36) U/L ALT 382 H (4-34) U/L Alkaline Phosphatase 237 H (38-126) U/L Urine Protein Trace H (Negative) Thrombosis Risk Factor Assmnt - Choose All That Apply Any of the Below Risk Factors Present?: Yes Each Factor Represents 1 point: Age 41-60 years, Obesity (BMI >25) Other Risk Factors: No Other congenital or acquired thrombophilia - If yes, enter type in comment: No Thrombosis Risk Factor Assessment Total Risk Factor Score: 2 Thrombosis Risk Factor Assessment Level: Low Risk
[2019-08-06 21:52] LABS: EBV-EA (IgG) <0.2 AI; EBV-EBNA(IgG) 3.4 AI; EBV-VCA (IgG) >8.0 AI; EBV-VCA (IgM) <0.2 AI
--- NOTE | 2019-08-06 22:15 | NM ---
EXAMINATION TYPE: NM hepatobiliary w CCK DATE OF EXAM: 08/06/2019 COMPARISON: Ultrasound abdomen 08/01/2019; CT 08/05/2019 HISTORY: Right upper quadrant pain; transaminitis TECHNIQUE: After the intravenous administration of 4.65 mCi Tc 99m Mebrofenin hepatobiliary scintigra phy is performed. Immediate images post injection. FINDINGS: There is satisfactory initial accumulation of tracer by the liver. The gallbladder is visualized with in 120 minutes. The small bowel activity is noted within 2 minutes. At two hours CCK was administered , patient was injected with 2.1 mcg of Kinevac, and gallbladder ejection fraction is calculated at 15 % (normal range being >35%). IMPRESSION: Abnormal hepatobiliary transport with delayed gallbladder visualization and decreased gal lbladder ejection fraction. Findings can correlate with a clinical diagnosis of chronic cholecystitis .
[2019-08-07] MEDS: KETOROLAC 30 MG/ML 1 ML VIAL IVP PRN ×2 (00:37→19:39)
--- NOTE | 2019-08-07 05:44 | P.CONS ---
History of Present Illness - Reason for Consult Consult date: 08/06/19 Elevated liver enzymes Requesting physician: Quincy Espinal - Chief Complaint Abdominal pain, fevers - History of Present Illness 59-year-old female who denies any significant past medical history except for melanoma who presented to the hospital for evaluation of fevers and abdominal pain. The patient reports symptoms of been occurring for the last 10 days where she has intermittent episodes of fevers. He reports an episode of abdominal pain occurring 4 days prior to presentation. Abdominal pain was in the right upper quadrant and severe and sharp in nature. The patient's associated this with increased severity after eating pizza. Patient reported associated nausea and vomiting. She has a known history of non-fatty liver disease and will seen in the emergency department 2 days ago with a negative evaluation included a no acute findings on ultrasound of the liver except for fatty infiltration of the liver. She denies any history of alcohol abuse, unusual foods or travel or any sick contacts. Patient had a few episodes of diarrhea with her symptoms over this is resolved. She presented back to the hospital for further evaluation at which time computed tomography scan of the abdomen was performed with a nonspecific left adrenal mass noted with recommendations for follow-up studies in the future, as well as fatty infiltration of the liver with no hepatobiliary pathology or mass seen. Amylase and lipase were negative. Acute viral hepatitis panel was negative. Liver enzymes which were previously mildly elevated were found to be increased with total bilirubin 0.8, alkaline phosphatase 237, AST 324 and ALTs 382 WBC 6.4, hemoglobin 13.3 and platelet count 189,000. Review of Systems REVIEW OF SYSTEMS: CONSTITUTIONAL: Denies any weight change or fatigue, but she does report fevers. CARDIOVASCULAR: Denies any chest pain, palpitations high or low blood pressures RESPIRATORY: Denies any shortness of breath, hemoptysis or cough. GENITOURINARY: No dysuria or hematuria. MUSCULOSKELETAL: No weakness reported. SKIN: Denies any new rashes or lesions, jaundice or pallor. PSYCHIATRIC: Denies any depression or anxiety. NEUROLOGY: Denies headache, denies any new focal deficits. EARS/NOSE/THROAT: No recent hearing change, congestion, nasal discharge or sore throat. EYES: No pain in eyes, discharge or change in vision. GASTROINTESTINAL: As per HPI. Past Medical History Past Medical History: No Reported History, Cancer Additional Past Medical History / Comment(s): melanomia right thigh History of Any Multi-Drug Resistant Organisms: None Reported Past Surgical History: Section, Orthopedic Surgery Additional Past Surgical History / Comment(s): breast reduction Past Anesthesia/Blood Transfusion Reactions: No Reported Reaction Past Psychological History: No Psychological Hx Reported Smoking Status: Never smoker Past Alcohol Use History: Occasional Past Drug Use History: None Reported - Past Family History Father Additional Family Medical History / Comment(s): of [place] Mother Additional Family Medical History / Comment(s): of OD. Medications and Allergies Home Medications Medication Instructions Recorded Confirmed Type Acetaminophen Tab [Tylenol Tab] 1,000 mg PO Q4H PRN 08/01/19 08/05/19 History Ibuprofen 400 mg PO Q4H PRN 08/01/19 08/05/19 History Allergies Allergy/AdvReac Type Severity Reaction Status Date / Time amoxicillin Allergy Rash/Hives Verified 08/05/19 19:58 Physical Exam Vitals: Vital Signs Temp Pulse Pulse Resp BP BP Pulse Ox 08/06/19 13:39 101.3 F H 102 H 14 137/90 94 L 08/06/19 12:48 101.1 F H 08/06/19 12:36 14 08/06/19 08:58 14 08/06/19 08:05 99.0 F 80 14 136/65 98 08/06/19 04:30 98.2 F 79 18 114/70 97 08/06/19 03:53 98.6 F 08/05/19 23:55 101.6 F H 90 18 116/72 99 08/05/19 20:00 100 F H 92 19 131/61 97 08/05/19 19:06 100 F H 92 19 131/61 97 08/05/19 18:43 98.5 F 08/05/19 18:40 82 16 137/82 97 Intake and Output 08/06/19 08/06/19 08/06/19 06:59 14:59 22:59 Intake Total 600 Balance 600 Intake: Oral 600 Other: Voiding Method Toilet # Voids 3 On physical examination, patient appears comfortable in no apparent distress. HEAD: Normocephalic, atraumatic. EYES: No scleral icterus. No conjunctival injection. MOUTH: No lesions, tongue midline. NECK: Trachea midline, no gross abnormalities. CHEST: Clear to auscultation with no wheezing or rhonchi appreciated. HEART: Regular rate and rhythm. ABDOMEN: Soft, obese, mildly tender to palpation. Bowel sounds are positive. No organomegaly. No guarding or rigidity. EXTREMITIES: No pedal edema. SKIN: No rashes, no jaundice. NEUROLOGIC: Alert and oriented x3. No focal deficits. Results CBC & Chem 7: 08/05/19 16:00 08/05/19 16:00 Labs: Abnormal Lab Results - Last 24 Hours (Table) 08/05/19 08/05/19 08/05/19 Range/Units 16:00 16:00 16:00 D-Dimer 1.15 H (<0.60) mg/L FEU Sodium 135 L (137-145) mmol/L Glucose 105 H (74-99) mg/dL AST 324 H (14-36) U/L ALT 382 H (4-34) U/L Alkaline Phosphatase 237 H (38-126) U/L Urine Protein Trace H (Negative) CT scan - abdomen: report reviewed (computed tomography scan of the abdomen was performed with a nonspecific left adrenal mass noted with recommendations for follow-up studies in the future, as well as fatty infiltration of the liver with no hepatobiliary pathology or mass seen.) Assessment and Plan (1) Elevated liver enzymes Narrative/Plan: 59-year-old female presenting for evaluation of fevers occurring over the past 10 days. Patient also reports intermittent right upper quadrant abdominal pain. She has a known history of fatty liver disease and denies any other high risk behavior including excessive alcohol use, drug use as well as any sick contacts, recent medications, travel or unusual foods. Acute viral hepatitis panel negative. Elevation is predominantly in hepatocellular pattern with total bilirubin 0.8, alkaline phosphatase 237, AST 324 and PLT 382. Computed tomography scan of the abdomen negative for any acute hepatobiliary pathology or masses with fatty infiltration of the liver noted as well as splenomegaly and a nonspecific 2.5 cm left adrenal mass. Etiology of elevated liver enzymes unclea r, may be secondary to acute viral hepatitis with further viral serologies ordered and exacerbated by underlying fatty liver disease, HIDA scan ordered to rule out cholecystitis, or other etiology. Current Visit: Yes Status: Acute Code(s): R74.8 - ABNORMAL LEVELS OF OTHER SERUM ENZYMES SNOMED Code(s): 739359508 (2) Splenomegaly Current Visit: Yes Status: Acute Code(s): R16.1 - SPLENOMEGALY, NOT ELSEWHERE CLASSIFIED SNOMED Code(s): 47492931 (3) Fever of unknown origin Current Visit: No Status: Acute Code(s): R50.9 - FEVER, UNSPECIFIED SNOMED Code(s): 6643228 (4) Abdominal pain Current Visit: Yes Status: Acute Code(s): R10.9 - UNSPECIFIED ABDOMINAL PAIN SNOMED Code(s): 58718761 Plan: Supportive care Okay for diet Continue to monitor BMP, CBC, LFTs Extensive viral serologies ordered Acute viral hepatitis panel was negative HIDA scan ordered to rule out cholecystitis Computed tomography scan of the abdomen reviewed Await recommendations by infectious disease service Thank you for allowing us to participate in the care of the patient
--- NOTE | 2019-08-07 07:55 | P.CONS ---
History of Present Illness - Reason for Consult Consult date: 08/06/19 Fever and elevated LFT Requesting physician: Quincy Espinal - Chief Complaint Fever and abd pain x 10 days - History of Present Illness Patient is a 59-year-old female past medical history for melanoma presenting to the ER for evaluation of fever and abdominal pain her patient symptom has been going on for about 10 days started initially have with intermittent fevers extremely as high as 101 to 102 F patient also having pain mostly in the upper abdominal area predominantly to the right upper quadrant more of a dull aching intensity 5-6 or 10 and no radiation patient felt nauseated but no vomiting and denies any diarrhea no chest pain shortness of breath no cough no URI symptoms with the symptom had the patient presented to the hospital on arrival to the ER patient initially have a low-grade fever 99.2 subsequently patient is spiking fever of 101 F on a daily basis patient did have work-up in the ER noted to have a normal white count of 6.4 with some evidence of for enlarged lymphocyte with reactive features on the peripheral smear. Have normal kidney function however did have elevated liver enzymes hepatitis panel has been negative as patient also complaining of some shortness of breath patient did have a CT angiogram that was negative for PE or acute pulmonary process patient did have a CT of abdominal pelvis which did shows mild diffuse fatty infiltration the liver without suspicious mass or ductal dilatation there was evidence of splenomegaly patient has been admitted to hospital infectious disease was consulted for her fever and elevated liver enzymes and need for antibiotic therapy. Review of Systems Positive point has been mentioned in HPI rest of the systems are negative Past Medical History Past Medical History: No Reported History, Cancer Additional Past Medical History / Comment(s): melanomia right thigh History of Any Multi-Drug Resistant Organisms: None Reported Past Surgical History: Section, Orthopedic Surgery Additional Past Surgical History / Comment(s): breast reduction Past Anesthesia/Blood Transfusion Reactions: No Reported Reaction Past Psychological History: No Psychological Hx Reported Smoking Status: Never smoker Past Alcohol Use History: Occasional Past Drug Use History: None Reported - Past Family History Father Additional Family Medical History / Comment(s): of [place] Mother Additional Family Medical History / Comment(s): of OD. Medications and Allergies Home Medications Medication Instructions Recorded Confirmed Type Acetaminophen Tab [Tylenol Tab] 1,000 mg PO Q4H PRN 08/01/19 08/05/19 History Ibuprofen 400 mg PO Q4H PRN 08/01/19 08/05/19 History Allergies Allergy/AdvReac Type Severity Reaction Status Date / Time amoxicillin Allergy Rash/Hives Verified 08/05/19 19:58 Physical Exam Vitals: Vital Signs Temp Pulse Resp BP Pulse Ox 08/07/19 05:00 98.9 F 83 18 111/74 95 08/07/19 02:27 98.8 F 08/07/19 00:34 102.3 F H 08/06/19 23:17 103.0 F H 104 H 20 121/81 95 08/06/19 21:00 99.7 F H 99 20 151/91 95 08/06/19 16:16 98.6 F 08/06/19 13:39 101.3 F H 102 H 14 137/90 94 L 08/06/19 12:48 101.1 F H 08/06/19 12:36 14 08/06/19 08:58 14 08/06/19 08:05 99.0 F 80 14 136/65 98 Intake and Output 08/06/19 08/07/19 08/07/19 22:59 06:59 14:59 Intake Total 700 Balance 700 Intake: Intake, IV Titration 700 Amount Sodium Chloride 0.9% 1, 700 000 ml @ 100 mls/hr IV . Q10H PENDING SALE TO [facility] Rx#:[id number] Other: Voiding Method Toilet Toilet # Voids 1 1 GENERAL DESCRIPTION: Middle-aged female up in the chair, no distress. No tachypnea or accessory muscle of respiration use. HEENT: Shows Pallor , no scleral icterus. Oral mucous membrane is dry. NECK: Trachea central, no thyromegaly. LUNGS: Unlabored breathing. Clear to auscultation anteriorly. No wheeze or crackle. HEART: S1, S2, regular rate and rhythm. ABDOMEN: Soft, mild right upper quadrant tenderness , guarding or rigidity EXTREMITIES: No edema of feet. SKIN: No rash, no masses palpable. NEUROLOGICAL: The patient is awake, alert, oriented x3, mood and affect normal. Results CBC & Chem 7: 08/05/19 16:00 08/05/19 16:00 Labs: Abnormal Lab Results - Last 24 Hours (Table) 06/03/20 06/04/20 06/04/20 Range/Units 16:00 10:28 10:28 Pathologist Review See comment A CMV IgG Ab Reactive H (Non-Reactive) CMV IgM Ab Reactive H (Non-Reactive) EBV Capsid Ag IgG Intrp POSITIVE H (NEGATIVE) EBV Nuc Ag IgG Interp POSITIVE H (NEGATIVE) Microbiology - Last 24 Hours (Table) 08/05/19 16:00 Blood Culture - Preliminary Blood No Growth after 24 hours Assessment and Plan Assessment: 1-patient presented hospital with fever right upper quadrant discomfort in this patient who did have evidence of hepatosplenomegaly patient did have a normal white count with evidence of reactive lymphocytosis high clinical suspicious for either CMV or EBV to be the likely etiology of her illness. 2-patient with a history of penicillin allergy but no history of anaphylaxis limiting the number of antibiotics safe to use (1) Penicillin allergy Current Visit: Yes Status: Acute Code(s): Z88.0 - ALLERGY STATUS TO PENICILLIN SNOMED Code(s): 99800151 (2) Elevated liver enzymes Current Visit: Yes Status: Acute Code(s): R74.8 - ABNORMAL LEVELS OF OTHER SERUM ENZYMES SNOMED Code(s): 588314537 (3) Fever Current Visit: Yes Status: Acute Code(s): R50.9 - FEVER, UNSPECIFIED SNOMED Code(s): 051236751 Plan: 1-we will obtain EBV and CMV serology 2-symptomatic treatment of her fever and pain We will follow on clinical condition and cultures to further adjust medication if needed Thank you for this consultation we will follow the patient along with you Time with Patient: Greater than 30
[2019-08-07 08:12] LABS: ALT 338 U/L (4-34); AST 229 U/L (14-36); African American GFR (CKD) >90 (>60 ml/min/1.73 sqM); Albumin 3.7 g/dL (3.5-5.0); Alkaline Phosphatase 236 U/L (38-126); Anion Gap 8 mmol/L; Bilirubin,Unconjugated 0.7 mg/dL (0.0-1.1); Blood Urea Nitrogen 10 mg/dL (7-17); Calcium 8.5 mg/dL (8.4-10.2); Carbon Dioxide 27 mmol/L (22-30); Chloride 100 mmol/L (98-107); Glucose 107 mg/dL (74-99); Non-African American GFR(CKD) 85 (>60 ml/min/1.73 sqM); Potassium 4.1 mmol/L (3.5-5.1); Sodium 135 mmol/L (137-145); Total Bilirubin 0.7 mg/dL (0.2-1.3); Total Protein 7.2 g/dL (6.3-8.2)
[2019-08-07] MEDS: IBUPROFEN 400 MG TAB PO PRN ×2 (08:29→16:33)
[2019-08-07] MEDS: ONDANSETRON 4 MG/2 ML VIAL IVP PRN (08:47)
--- NOTE | 2019-08-07 11:24 | P.GSCN ---
<Maggi Grullon - Last Filed: 08/07/19 11:55> History of Present Illness Consult date: 08/07/19 Reason for Consult: RUQ pain, fever, abnormal hida scan Requesting physician: Evangelina Crump History of present illness: CHIEF COMPLAINT: Right upper quadrant pain, fever, abnormal HIDA scan HISTORY OF PRESENT ILLNESS: 59-year-old female who presented to emergency room with a chief complaint of fever for one week and abdominal pain. Patient was found to have transaminitis. A HIDA scan was ordered revealing ejection fraction of 15%. General surgery was consulted for further evaluation. Patient examined at the bedside. She reports right upper quadrant pain during examination. She states the pain is tolerable at this time. She denies nausea or vomiting, but reports an episode of vomiting 2 days ago. Denies diarrhea or constipation. She has been experiencing fevers for the past 10 days. She denies known gallbladder disease. Denies family history of gallbladder disease. She reports having intermittent abdominal pain over the past several months after eating greasy or fatty foods. She also reports shoulder pain occasionally. Initially patient stated this occured when she had the abdominal pain but then changed her mind and is unsure if the shoulder pain occurs at the same time as the abdominal pain. PAST MEDICAL HISTORY: See list. PAST SURGICAL HISTORY: See list. SOCIAL HISTORY: No illicit drug use. REVIEW OF SYSTEMS: CONSTITUTIONAL: Denies fever or chills. HEENT: Denies blurred vision, vision changes, or eye pain. Denies hemoptysis CARDIOVASCULAR: Denies chest pain or pressure. RESPIRATORY: No shortness of breath. GASTROINTESTINAL: Refer to HPI for pertinent findings HEMATOLOGIC: Denies bleeding disorders. GENITOURINARY: Denies any blood in urine. SKIN: Denies pruitis. Denies rash. PHYSICAL EXAM: VITAL SIGNS: Reviewed. GENERAL: Well-developed in no acute distress. HEENT: No sclera icterus. Extraocular movements grossly intact. Moist buccal mucosa. Head is atraumatic, normocephalic. ABDOMEN: Soft. Nondistended. Tenderness upon palpation of right upper quadrant. NEUROLOGIC: Alert and oriented. Cranial nerves II through XII grossly intact. LABORATORY DATA: WBC 6.4. Hemoglobin 13.3. Platelet count 189. Bilirubin 0.7. AST 229. ALT 338. Alkaline phosphatase 236. CMV IgG/IgM ab reactive IMAGING: -CT abdomen and pelvis: Mild diffuse fatty infiltration of the liver without suspicious mass or ductal dilatation. No surrounding ascites. Splenomegaly is present. No suspicious acute intra-abdominal process. Nonspecific 2.5 cm left adrenal mass. -HIDA scan: Reveals ejection fraction of 15% ASSESSMENT: 1. Right upper quadrant pain, fever, and transaminitis; suspect secondary to CMV, can not rule out underlying gallbladder dysfunction PLAN: -Diet as tolerated -Monitor labs -Patient will be re-evaluated by Dr. Dodson this afternoon. Further recommendations pending Nurse practitioner note has been reviewed by physician. Signing provider agrees with the documented findings, assessment, and plan of care. Past Medical History Past Medical History: No Reported History, Cancer Additional Past Medical History / Comment(s): melanomia right thigh History of Any Multi-Drug Resistant Organisms: None Reported Past Surgical History: Section, Orthopedic Surgery Additional Past Surgical History / Comment(s): breast reduction Past Anesthesia/Blood Transfusion Reactions: No Reported Reaction Past Psychological History: No Psychological Hx Reported Smoking Status: Never smoker Past Alcohol Use History: Occasional Past Drug Use History: None Reported - Past Family History Father Additional Family Medical History / Comment(s): of [place] Mother Additional Family Medical History / Comment(s): of OD. Medications and Allergies Home Medications Medication Instructions Recorded Confirmed Type Acetaminophen Tab [Tylenol Tab] 1,000 mg PO Q4H PRN 08/01/19 08/05/19 History Ibuprofen 400 mg PO Q4H PRN 08/01/19 08/05/19 History Allergies Allergy/AdvReac Type Severity Reaction Status Date / Time amoxicillin Allergy Rash/Hives Verified 08/05/19 19:58 Surgical - Exam Vital Signs Temp Pulse Resp BP Pulse Ox 99.3 F 84 18 145/83 94 L 08/05/19 15:01 08/05/19 15:01 08/05/19 15:01 08/05/19 15:01 08/05/19 15:01 Results - Labs 08/05/19 16:00 08/07/19 07:24 Abnormal Lab Results - Last 24 Hours (Table) 08/05/19 08/06/19 08/06/19 Range/Units 16:00 10:28 10:28 Pathologist Review See comment A Sodium (137-145) mmol/L Glucose (74-99) mg/dL AST (14-36) U/L ALT (4-34) U/L Alkaline Phosphatase (38-126) U/L CMV IgG Ab Reactive H (Non-Reactive) CMV IgM Ab Reactive H (Non-Reactive) EBV Capsid Ag IgG Intrp POSITIVE H (NEGATIVE) EBV Nuc Ag IgG Interp POSITIVE H (NEGATIVE) 08/07/19 Range/Units 07:24 Pathologist Review Sodium 135 L (137-145) mmol/L Glucose 107 H (74-99) mg/dL AST 229 H (14-36) U/L ALT 338 H (4-34) U/L Alkaline Phosphatase 236 H (38-126) U/L CMV IgG Ab (Non-Reactive) CMV IgM Ab (Non-Reactive) EBV Capsid Ag IgG Intrp (NEGATIVE) EBV Nuc Ag IgG Interp (NEGATIVE) Microbiology - Last 24 Hours (Table) 08/05/19 16:00 Blood Culture - Preliminary Blood No Growth after 24 hours Diabetes panel 08/07/19 Range/Units 07:24 Sodium 135 L (137-145) mmol/L Potassium 4.1 (3.5-5.1) mmol/L Chloride 100 (98-107) mmol/L Carbon Dioxide 27 (22-30) mmol/L BUN 10 (7-17) mg/dL Creatinine 0.78 (0.52-1.04) mg/dL Glucose 107 H (74-99) mg/dL Calcium 8.5 (8.4-10.2) mg/dL AST 229 H (14-36) U/L ALT 338 H (4-34) U/L Alkaline Phosphatase 236 H (38-126) U/L Total Protein 7.2 (6.3-8.2) g/dL Albumin 3.7 (3.5-5.0) g/dL Calcium panel 08/07/19 Range/Units 07:24 Calcium 8.5 (8.4-10.2) mg/dL Albumin 3.7 (3.5-5.0) g/dL Pituitary panel 08/07/19 Range/Units 07:24 Sodium 135 L (137-145) mmol/L Potassium 4.1 (3.5-5.1) mmol/L Chloride 100 (98-107) mmol/L Carbon Dioxide 27 (22-30) mmol/L BUN 10 (7-17) mg/dL Creatinine 0.78 (0.52-1.04) mg/dL Glucose 107 H (74-99) mg/dL Calcium 8.5 (8.4-10.2) mg/dL Adrenal panel 08/07/19 Range/Units 07:24 Sodium 135 L (137-145) mmol/L Potassium 4.1 (3.5-5.1) mmol/L Chloride 100 (98-107) mmol/L Carbon Dioxide 27 (22-30) mmol/L BUN 10 (7-17) mg/dL Creatinine 0.78 (0.52-1.04) mg/dL Glucose 107 H (74-99) mg/dL Calcium 8.5 (8.4-10.2) mg/dL Total Bilirubin 0.7 (0.2-1.3) mg/dL AST 229 H (14-36) U/L ALT 338 H (4-34) U/L Alkaline Phosphatase 236 H (38-126) U/L Total Protein 7.2 (6.3-8.2) g/dL Albumin 3.7 (3.5-5.0) g/dL <Ean Dodson - Last Filed: 08/07/19 18:24> History of Present Illness History of present illness: As above. Patient with fevers, right upper quadrant pain, elevated liver enzymes, lymphocytosis, and CMV IgM positivity. Etiology likely on the basis of the CMV infection. Underlying gallbladder disease thought to be far less likely. No plans for surgical intervention at this time. We'll follow. Surgical - Exam Vital Signs Temp Pulse Resp BP Pulse Ox 99.3 F 84 18 145/83 94 L 08/05/19 15:01 08/05/19 15:01 08/05/19 15:01 08/05/19 15:01 08/05/19 15:01 Results - Labs 08/05/19 16:00 08/07/19 07:24 Abnormal Lab Results - Last 24 Hours (Table) 08/06/19 08/06/19 08/07/19 Range/Units 10:28 10:28 07:24 Sodium 135 L (137-145) mmol/L Glucose 107 H (74-99) mg/dL Iron 35 L (50-170) ug/dL % Saturation 11.82 L (12.00-45.00) AST 229 H (14-36) U/L ALT 338 H (4-34) U/L Alkaline Phosphatase 236 H (38-126) U/L CMV IgG Ab Reactive H (Non-Reactive) CMV IgM Ab Reactive H (Non-Reactive) EBV Capsid Ag IgG Intrp POSITIVE H (NEGATIVE) EBV Nuc Ag IgG Interp POSITIVE H (NEGATIVE) 08/07/19 Range/Units 07:24 Sodium (137-145) mmol/L Glucose (74-99) mg/dL Iron (50-170) ug/dL % Saturation (12.00-45.00) AST (14-36) U/L ALT (4-34) U/L Alkaline Phosphatase (38-126) U/L CMV IgG Ab (Non-Reactive) CMV IgM Ab (Non-Reactive) EBV Capsid Ag IgG Intrp POSITIVE H (NEGATIVE) EBV Nuc Ag IgG Interp POSITIVE H (NEGATIVE) Microbiology - Last 24 Hours (Table) 08/05/19 16:00 Blood Culture - Preliminary Blood No Growth after 48 hours Diabetes panel 08/07/19 Range/Units 07:24 Sodium 135 L (137-145) mmol/L Potassium 4.1 (3.5-5.1) mmol/L Chloride 100 (98-107) mmol/L Carbon Dioxide 27 (22-30) mmol/L BUN 10 (7-17) mg/dL Creatinine 0.78 (0.52-1.04) mg/dL Glucose 107 H (74-99) mg/dL Calcium 8.5 (8.4-10.2) mg/dL AST 229 H (14-36) U/L ALT 338 H (4-34) U/L Alkaline Phosphatase 236 H (38-126) U/L Total Protein 7.2 (6.3-8.2) g/dL Albumin 3.7 (3.5-5.0) g/dL Calcium panel 08/07/19 Range/Units 07:24 Calcium 8.5 (8.4-10.2) mg/dL Albumin 3.7 (3.5-5.0) g/dL Pituitary panel 08/07/19 Range/Units 07:24 Sodium 135 L (137-145) mmol/L Potassium 4.1 (3.5-5.1) mmol/L Chloride 100 (98-107) mmol/L Carbon Dioxide 27 (22-30) mmol/L BUN 10 (7-17) mg/dL Creatinine 0.78 (0.52-1.04) mg/dL Glucose 107 H (74-99) mg/dL Calcium 8.5 (8.4-10.2) mg/dL Adrenal panel 08/07/19 Range/Units 07:24 Sodium 135 L (137-145) mmol/L Potassium 4.1 (3.5-5.1) mmol/L Chloride 100 (98-107) mmol/L Carbon Dioxide 27 (22-30) mmol/L BUN 10 (7-17) mg/dL Creatinine 0.78 (0.52-1.04) mg/dL Glucose 107 H (74-99) mg/dL Calcium 8.5 (8.4-10.2) mg/dL Total Bilirubin 0.7 (0.2-1.3) mg/dL AST 229 H (14-36) U/L ALT 338 H (4-34) U/L Alkaline Phosphatase 236 H (38-126) U/L Total Protein 7.2 (6.3-8.2) g/dL Albumin 3.7 (3.5-5.0) g/dL
[2019-08-07 12:45] LABS: Ceruloplasmin 33.7 mg/dL (20.0-60.0)
[2019-08-07] MEDS: SODIUM CHLORIDE 0.9% 1,000 ML IV SCH ×2 (12:56→19:47)
[2019-08-07 13:19] LABS: Protein, Total 6.7 g/dL (6.2-8.2)
[2019-08-07 13:22] LABS: % Iron Saturation 11.82 (12.00-45.00); Iron 35 ug/dL (50-170); Total Iron Binding Capacity 296 ug/dL (228-460)
[2019-08-07 13:30] LABS: Alpha Fetoprotein, Tumor Mkr <2.5 ng/mL (0.0-7.9)
[2019-08-07 13:53] LABS: EBV-EA (IgG) <0.2 AI; EBV-EBNA(IgG) 3.3 AI; EBV-VCA (IgG) >8.0 AI; EBV-VCA (IgM) <0.2 AI
--- NOTE | 2019-08-07 15:29 | PN ---
PROGRESS NOTE DATE OF DICTATION: 08/07/2019 This patient is a 59-year-old pleasant white female admitted to the hospital with a fever for the last one week's duration. She was also complaining of vague abdominal discomfort, mostly in the epigastric and right upper quadrant area, associated with chills. The symptoms continued to progressively get worse; hence she came into the emergency room yesterday and she was noted to have elevated serum transaminases. Hence we are consulted in regard to this issue. She was noted to have ALT and AST in the range of 324 and 382, respectively, with slightly elevated alkaline phosphatase of 234 and normal bilirubin. Repeat serum transaminases today are slightly improved. She did have a CT of the abdomen and pelvis done that showed evidence of fatty infiltration of the liver. She also had a HIDA scan this morning that showed low ejection fraction of the gallbladder. In the meantime, the patient continues to have fever. She had a T- max of 102.3 last night. This morning her temperature is 99.3. She still has some vague epigastric discomfort and right upper quadrant abdominal pain. PHYSICAL EXAMINATION: She appears comfortable. No apparent distress. Vital signs are stable. Blood pressure 111/74, pulse rate 83, temperature 98.9. HEENT examination unremarkable. Conjunctivae pink. Sclerae anicteric. Oral cavity no lesions. NECK: No JVD or lymph node enlargement. CHEST: Clear to auscultation. HEART: Regular rate and rhythm. ABDOMEN: Soft. Bowel sounds are positive. Mild tenderness in the right upper quadrant area. Rest of the abdomen was benign. EXTREMITIES: No pedal edema. SKIN: No rashes. NEUROLOGIC: Alert and oriented x3. No focal deficits. LABS: Labs from today show AST is down to 229, ALT is down to 338, and alkaline phosphatase is down to 232. Bilirubin is normal. Hepatitis serologies for A, B and C are negative. CMV IgM antibody positive. EBV IgM antibody is negative. EBV IgG antibody is positive. ANJEL screen is negative. Acetaminophen less than 10. IMPRESSION: This is a lady who presented to the hospital with fever for the last 10 days' duration associated with vague upper abdominal pain and elevated liver function tests, all consistent with acute hepatitis-like picture, most likely viral in etiology. Her serologies for A, B and C were negative. However, CMV IgM antibody is positive, which makes it likely that we are dealing with CMV hepatitis. The patient does not have any history of immunocompromised state. Her serum transaminases are slightly improved. She still has fever and mild right upper quadrant abdominal pain. CT of the abdomen showed diffuse fatty liver, but HIDA scan of the gallbladder was done yesterday that showed decreased ejection fraction of the gallbladder. RECOMMENDATIONS: I had a lengthy discussion with the patient regarding her lab results as well as CT findings and HIDA scan results. At this time it is very likely we are dealing with acute viral hepatitis, possibly CMV hepatitis, that is causing the whole clinical picture; doubt we are dealing with any gallbladder pathology. I recommended that we continue with supportive and symptomatic care, monitor LFTs closely, and hold off on any gallbladder surgery at this time. Will discuss with Dr. Dodson. Will repeat labs in the morning. Thank you for this consultation. SAM / LAUREN: [id number] /
--- NOTE | 2019-08-07 16:26 | P.CONS ---
History of Present Illness - Reason for Consult Consult date: 08/07/19 Abnormal peripheral smear, neutropenia, splenomegaly - History of Present Illness The patient is a 59-year-old white female, in fairly good health and baseline. The patient had developed intermittent fevers about 10 days ago. He subsequently developed right upper quadrant pain, which is initially intermittent he did this became more persistent and severe, with worsening with certain types of 4. She also developed decreased appetite, and nausea and vomiting. She therefore came in to the emergency room and was admitted further management. Lab abnormalities on admission included liver enzyme elevation, and relative neutropenia with ANC in the 2000 range, with a lymphocytosis in the 3000 range. Peripheral smear showed abnormal lymphocyte forms most consistent with activated lymphocytes. Patient had ultrasound and CAT scan, showing mild splenomegaly at 14.6 cm, with evidence of heterogenous liver parenchyma. Serologies for coronavirus, EBV and CMV were done. They showed evidence of prior EBV infection. However serologies were consistent with acute CMV infection with IgG and IgM both positive. The patient denied any prior history of blood related disorders. 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 She also has a history of rosacea. Review of Systems Constitutional: Reports anorexia, Reports fever, Reports poor appetite Eyes: denies blurred vision, denies pain Ears: deny: decreased hearing, ear discharge, earache, tinnitus Ears, nose, mouth and throat: Denies headache, Denies sore throat Cardiovascular: Reports decreased exercise tolerance Respiratory: Denies cough Gastrointestinal: Reports abdominal pain, Reports nausea, Reports vomiting Genitourinary: Denies dysuria, Denies hematuria Menstruation: Reports postmenopausal Musculoskeletal: Denies myalgias Integumentary: Reports rash (Rosacea, without any major change in pattern), Denies pruritus Neurological: Reports weakness, Denies numbness Psychiatric: Denies anxiety, Denies depression Endocrine: Reports fatigue Hematologic/Lymphatic: Reports as per HPI Past Medical History Past Medical History: No Reported History, Cancer Additional Past Medical History / Comment(s): melanomia right thigh History of Any Multi-Drug Resistant Organisms: None Reported Past Surgical History: Section, Orthopedic Surgery Additional Past Surgical History / Comment(s): breast reduction Past Anesthesia/Blood Transfusion Reactions: No Reported Reaction Past Psychological History: No Psychological Hx Reported Smoking Status: Never smoker Past Alcohol Use History: Occasional Past Drug Use History: None Reported - Past Family History Father Additional Family Medical History / Comment(s): of [place] Mother Additional Family Medical History / Comment(s): of OD. Medications and Allergies Home Medications Medication Instructions Recorded Confirmed Type Acetaminophen Tab [Tylenol Tab] 1,000 mg PO Q4H PRN 08/01/19 08/05/19 History Ibuprofen 400 mg PO Q4H PRN 08/01/19 08/05/19 History Allergies Allergy/AdvReac Type Severity Reaction Status Date / Time amoxicillin Allergy Rash/Hives Verified 08/05/19 19:58 Physical Exam Vitals: Vital Signs Temp Pulse Resp BP Pulse Ox 08/07/19 12:05 98.9 F 78 16 118/70 96 08/07/19 08:27 99.3 F 08/07/19 05:00 98.9 F 83 18 111/74 95 08/07/19 02:27 98.8 F 08/07/19 00:34 102.3 F H 08/06/19 23:17 103.0 F H 104 H 20 121/81 95 08/06/19 21:00 99.7 F H 99 20 151/91 95 Intake and Output 08/07/19 08/07/19 08/07/19 06:59 14:59 22:59 Intake Total 700 Balance 700 Intake: Intake, IV Titration 700 Amount Sodium Chloride 0.9% 1, 700 000 ml @ 100 mls/hr IV . Q10H [facility] Rx#:[id number] Other: Voiding Method Toilet # Voids 1 2 2 - Constitutional General appearance: no acute distress - EENT Eyes: EOMI, PERRLA ENT: hearing grossly normal, normal oropharynx - Neck Neck: lymphadenopathy (2-3 cm palpable nodes bilateral medial supraclavicular regions, normal consistency mobile) Thyroid: bilateral: normal size - Respiratory Respiratory: bilateral: CTA - Cardiovascular Rhythm: regular Heart sounds: normal: S1, S2 - Gastrointestinal General gastrointestinal: normal bowel sounds, soft - Neurologic Neurologic: CNII-XII intact - Musculoskeletal Musculoskeletal: generalized weakness, strength equal bilaterally - Psychiatric Psychiatric: A&O x's 3, appropriate affect Results CBC & Chem 7: 08/05/19 16:00 08/07/19 07:24 Labs: Abnormal Lab Results - Last 24 Hours (Table) 08/05/19 08/06/19 08/06/19 Range/Units 16:00 10:28 10:28 Pathologist Review See comment A Sodium (137-145) mmol/L Glucose (74-99) mg/dL Iron (50-170) ug/dL % Saturation (12.00-45.00) AST (14-36) U/L ALT (4-34) U/L Alkaline Phosphatase (38-126) U/L CMV IgG Ab Reactive H (Non-Reactive) CMV IgM Ab Reactive H (Non-Reactive) EBV Capsid Ag IgG Intrp POSITIVE H (NEGATIVE) EBV Nuc Ag IgG Interp POSITIVE H (NEGATIVE) 08/07/19 08/07/19 Range/Units 07:24 07:24 Pathologist Review Sodium 135 L (137-145) mmol/L Glucose 107 H (74-99) mg/dL Iron 35 L (50-170) ug/dL % Saturation 11.82 L (12.00-45.00) AST 229 H (14-36) U/L ALT 338 H (4-34) U/L Alkaline Phosphatase 236 H (38-126) U/L CMV IgG Ab (Non-Reactive) CMV IgM Ab (Non-Reactive) EBV Capsid Ag IgG Intrp POSITIVE H (NEGATIVE) EBV Nuc Ag IgG Interp POSITIVE H (NEGATIVE) Microbiology - Last 24 Hours (Table) 08/05/19 16:00 Blood Culture - Preliminary Blood No Growth after 24 hours Comments: Medicine HIDA scan report reviewed CT scan - abdomen: report reviewed CT scan - chest: report reviewed CT scan - pelvis: report reviewed Assessment and Plan (1) Blood dyscrasia Narrative/Plan: The patient's WBC is normal. Absolute neutrophil and lymphocyte counts are also normal. However the patient's lymphocyte count is higher than neutrophil count with reversal of normal ratio. Abnormal lymphocyte forms are seen in the peripheral smear, most consistent with reactive/activated lymphocytes. This clinical picture is most consistent with a reactive condition due to her CMV infection which is serologically confirmed. This would be expected to cause cytopenias, especially neutropenia, and reactive leukocytosis. Therefore at this time the clinical suspicion for a true lymphoproliferative disorder is quite low. Initial labs were workup will be ordered. Plan to follow-up with the patient in about 4-5 weeks in the office to check for resolution. Current Visit: Yes Status: Acute Code(s): D75.9 - DISEASE OF BLOOD AND BLOOD-FORMING ORGANS, UNSPECIFIED SNOMED Code(s): 718746031 (2) Splenomegaly Narrative/Plan: The patient has mild sternal megaly, which can also be explained by CMV infection. In addition she appears to have likely chronic liver steatosis which can also lead to mild splenomegaly. Similarly her supraclavicular adenopathy is also felt to be most likely reactive to her CMV infection. - Workup with labs as noted above. - Follow-up in the office to check for resolution Current Visit: Yes Status: Acute Code(s): R16.1 - SPLENOMEGALY, NOT ELSEWHERE CLASSIFIED SNOMED Code(s): 29428001 (3) CMV (cytomegalovirus infection) Narrative/Plan: This appears to be the cause of the patient's presentation. Case discussed with ID. Defer to them for ongoing management Current Visit: Yes Status: Acute Code(s): B25.9 - CYTOMEGALOVIRAL DISEASE, UNSPECIFIED SNOMED Code(s): 70272375
--- NOTE | 2019-08-07 16:44 | PN ---
PROGRESS NOTE DATE OF SERVICE: 08/07/2019 REASON FOR FOLLOWUP: Fever. INTERVAL HISTORY: The patient did spike another fever around midnight of 102 to 103. The patient is afebrile since then. The patient is feeling slightly better today as well as the right upper quadrant pain is concerned. No nausea, no vomiting. No chest pain, shortness of breath or cough. PHYSICAL EXAMINATION: Blood pressure 118/70 with a pulse of 73, temperature 98.9. She is 96% on room air. General description is a middle-aged female, up in the chair in no distress. RESPIRATORY SYSTEM: Unlabored breathing, clear to auscultation anteriorly. HEART: S1, S2. Regular rate and rhythm. ABDOMEN: Soft, no tenderness. LABS: CMV IgM allergy positive, EBV IgG positive, IgM is negative. DIAGNOSTIC IMPRESSION AND PLAN: Patient with a fever and elevated blood culture related to acute CMV infection. However, the patient did have abnormal HIDA scan with underlying culture not excluded. The patient mentioning clinical symptoms with Rocephin continued. Will repeat her blood work and CRP tomorrow to see any need for discharge antibiotics. Questions and concerns were answered. MMODL / IJN: [id number] /
--- NOTE | 2019-08-07 18:25 | P.PN ---
Progress Note - Text Progress Note Date: 08/07/19 Chief Complaint: Fever, abdominal pain History of presenting complaint: This is a very pleasant 59-year-old patient of Dr. kramer. Patient presents with tenderness history of having a fever. Denied any respiratory symptoms. We'll repeat 2 days ago developed slight shortness of breath. No cough. Patient's had abdominal pain which she developed on the right upper quadrant for about 4 days she says. Very slight nausea. Not able to keep much food down. No diarrhea. Denies any rash in the body. Patient has rosacea which is slightly more prominent. Patient was here in the ER on July 31. Abdominal ultrasound showed liver to be slightly enlarged. Otherwise no gallstones. Patient had a normal white count count them and also had a normal white count today. Patient has slight elevation of liver enzymes back on July 31. And the liver enzymes as gone up since compared to then. Patient denies any urinary symptoms. No diarrhea. Patient tested negative for COVID 19 PCR. Acute hepatitis screen for A, B, and C was also negative. Heterophile antibody was also negative. Computed tomography scan of the abdomen shows some diffuse fatty infiltration and some splenomegaly. Denies any photophobia. No neck stiffness. Very slight headache. Admitted with-acute CMV infection manifesting with fever, lymphadenopathy, splenomegaly. Today-patient feeling better. Starting to eat better. Right abdominal pain. Up in chair. More cheerful. Review of systems: Was done for constitutional, cardiovascular, GI, pulmonary. relevant finding as above Active Medications Sodium Chloride (Saline 0.9%) 1,000 mls @ 100 mls/hr IV .Q10H [facility] Last Admin: 08/07/19 12:56 Dose: Not Given Documented by: Ceftriaxone Sodium 2 gm/ (Sodium Chloride) 50 mls @ 100 mls/hr IVPB Q24HR [facility] Last Admin: 08/07/19 08:29 Dose: 100 mls/hr Documented by: Ibuprofen (Motrin) 400 mg PO Q6HR PRN PRN Reason: Mild Pain or Fever > 100.5 Last Admin: 08/07/19 16:33 Dose: 400 mg Documented by: Ketorolac Tromethamine (Toradol) 30 mg IVP Q6HR PRN PRN Reason: Moderate Pain Stop: 08/10/19 18:57 Last Admin: 08/07/19 00:37 Dose: 30 mg Documented by: Naloxone HCl (Narcan) 0.2 mg IV Q2M PRN PRN Reason: Opioid Reversal Ondansetron HCl (Zofran) 4 mg IVP Q8HR PRN PRN Reason: Nausea And Vomiting Last Admin: 08/07/19 08:47 Dose: 4 mg Documented by: Physical examination: VITAL SIGNS: T-max 102.3 last night, afebrile this morning, 78, 16, 118/70, 96% room air GENERAL: Sitting in a chair, eating, looking much better EYES: Pupils equal. Conjunctiva normal. HEENT: External appearance of nose and ears normal, oral cavity grossly normal both the cheeks are flushed with prominent small blood vessels NECK: JVD not raised; masses not palpable. HEART: First and second heart sounds are normal; no edema. LUNGS: Respiratory rate normal; clear to auscultation. ABDOMEN: Soft, right upper quadrant tenderness, no guarding rigidity, liver spleen not palpable, no masses palpable. PSYCH: Alert and oriented x3; mood and affect anxiousl. LYMPHATICS: Lymph nodes palpable in the supraclavicular regions Investigations: Sodium 135 potassium 4.1 creatinine 0.78 AST 229 ALT 338 CMV IgG antibody reactive, CMV IgM antibody reactive Conner-Blue virus capsid antigen IgG positive Assessment and plan: -Acute CMV infection. Patient otherwise in good health. We'll check her immunoglobulin profile the patient is no underlying immunodeficiency. Patient does not report any prior histories of frequent infections. -Morbid obesity BMI 40.5 -Nonalcoholic fatty liver disease -Sepsis, cause of infection unknown Plan: Results discussed with the patient detail. Continue with IV fluids. Patient and IV ceftriaxone per ID. Discussed with Dr moody from hematology..
[2019-08-07] MEDS: ENOXAPARIN 40 MG/0.4 ML SYRINGE SQ SCH (19:31)
[2019-08-08] MEDS: IBUPROFEN 400 MG TAB PO PRN ×2 (01:58→13:29)
[2019-08-08 08:04] LABS: ALT 274 U/L (4-34); AST 163 U/L (14-36); African American GFR (CKD) >90 (>60 ml/min/1.73 sqM); Albumin 3.5 g/dL (3.5-5.0); Alkaline Phosphatase 233 U/L (38-126); Anion Gap 7 mmol/L; Blood Urea Nitrogen 10 mg/dL (7-17); Calcium 8.4 mg/dL (8.4-10.2); Carbon Dioxide 28 mmol/L (22-30); Chloride 102 mmol/L (98-107); Glucose 105 mg/dL (74-99); Non-African American GFR(CKD) >90 (>60 ml/min/1.73 sqM); Sodium 137 mmol/L (137-145); Total Bilirubin 0.7 mg/dL (0.2-1.3); Total Protein 6.9 g/dL (6.3-8.2)
[2019-08-08] MEDS: SODIUM CHLORIDE 0.9% 1,000 ML IV SCH ×2 (09:25→17:35)
[2019-08-08] MEDS: ENOXAPARIN 40 MG/0.4 ML SYRINGE SQ SCH (09:28)
--- NOTE | 2019-08-08 13:38 | P.PN ---
Subjective Progress Note Date: 08/08/19 Principal diagnosis: Abdominal pain Patient stable today. Still having fevers. T-max 102. Liver enzymes improved. Had some crampy diffuse abdominal pain last night. Some back pain as well. Still feels ill when febrile. Objective - Vital Signs Vital signs: Vital Signs Temp 100.3 F H 08/08/19 12:28 Pulse 97 08/08/19 12:28 Resp 18 08/08/19 12:28 BP 143/85 08/08/19 12:28 Pulse Ox 95 08/08/19 12:28 Intake & Output 08/07/19 08/08/19 08/08/19 18:59 06:59 18:59 Intake Total 1670 450 Balance 1670 450 Intake: Intake, IV Titration 950 Amount Sodium Chloride 0.9% 1, 900 000 ml @ 100 mls/hr IV . Q10H [facility] Rx#:[id number] cefTRIAXone 2 gm In 50 Sodium Chloride 0.9% 50 ml @ 100 mls/hr IVPB Q24HR [facility] Rx#:[id number] Oral 720 450 Other: Voiding Method Toilet Toilet # Voids 4 2 - Exam Abdomen: Soft, nondistended, mild upper abdominal tenderness - Labs CBC & Chem 7: 08/05/19 16:00 08/08/19 07:33 Labs: Abnormal Lab Results - Last 24 Hours (Table) 08/07/19 08/08/19 Range/Units 07:24 07:33 Glucose 105 H (74-99) mg/dL AST 163 H (14-36) U/L ALT 274 H (4-34) U/L Alkaline Phosphatase 233 H (38-126) U/L EBV Capsid Ag IgG Intrp POSITIVE H (NEGATIVE) EBV Nuc Ag IgG Interp POSITIVE H (NEGATIVE) Microbiology - Last 24 Hours (Table) 08/05/19 16:00 Blood Culture - Preliminary Blood No Growth after 48 hours Assessment and Plan (1) CMV (cytomegalovirus infection) Narrative/Plan: Continue supportive care. Diet as tolerated. Monitor fevers. Current Visit: Yes Status: Acute Code(s): B25.9 - CYTOMEGALOVIRAL DISEASE, UNSPECIFIED SNOMED Code(s): 85609572
--- NOTE | 2019-08-08 14:17 | PN ---
PROGRESS NOTE DATE OF DICTATION: August 08, 2019 Patient is a 59-year-old pleasant white female admitted to the hospital with a low- grade fever for the last 1 week duration associated with some abdominal discomfort and elevated LFTs. Workup while in the hospital revealed positive IgM antibody for CMV and all the rest of the serologies for hepatitis A, B, and C was negative. The patient feeling better today. However, early this morning after having breakfast, she had some queasiness in the upper abdominal area and had some nausea but no emesis. She also had low-grade fever last night with a T-max of 100.3. She reports no rectal bleeding or melena. PHYSICAL EXAMINATION: Appears comfortable in apparent distress. Vital signs stable. T-max was 101.1, blood pressure 107/74, pulse rate 86. HEENT examination unremarkable. Conjunctivae pink. Sclerae anicteric. Oral cavity no lesions. NECK no JVD or lymph node enlargement. CHEST was clear to auscultation. HEART: Regular rate and rhythm. ABDOMEN: Minimal tenderness in the epigastric area. Rest of the abdomen was benign. Bowel sounds are positive. EXTREMITIES no pedal edema. SKIN no rashes. NEUROLOGIC: Alert and oriented x3. No focal deficits. LAB: AST is down to 163, ALT is down to 274, alkaline phosphatase is 233 and bilirubin normal. IMPRESSION: 1. This is a lady who presents to the hospital with fever and chills for the last 1 week duration and vague upper abdominal discomfort had noted to have elevated serum transaminases consistent with acute hepatitis. Serologies were positive for IgM, CMV antibody consistent with acute CMV hepatitis. Serum transaminases are gradually improving. Bilirubin is within normal limits. 2. Decreased ejection fraction of the gallbladder. Dr. Dodson following the patient closely. 3. Low-grade fever. RECOMMENDATIONS: 1. Monitor LFTs on a close basis. 2. Antibiotics for fever. 3. Continue Protonix 40 mg daily. 4. Repeat labs in the morning and will follow with you closely. Thank you for this consultation. MMODL / IJN: [id number] /
[2019-08-08 16:55] LABS: Rheumatoid Factor, Qnt 12 IU/mL (0-15)
--- NOTE | 2019-08-08 19:53 | P.PN ---
Progress Note - Text Progress Note Date: 08/08/19 Chief Complaint: Fever, abdominal pain History of presenting complaint: This is a very pleasant 59-year-old patient of Dr. kramer. Patient presents with tenderness history of having a fever. Denied any respiratory symptoms. We'll repeat 2 days ago developed slight shortness of breath. No cough. Patient's had abdominal pain which she developed on the right upper quadrant for about 4 days she says. Very slight nausea. Not able to keep much food down. No diarrhea. Denies any rash in the body. Patient has rosacea which is slightly more prominent. Patient was here in the ER on July 31. Abdominal ultrasound showed liver to be slightly enlarged. Otherwise no gallstones. Patient had a normal white count count them and also had a normal white count today. Patient has slight elevation of liver enzymes back on July 31. And the liver enzymes as gone up since compared to then. Patient denies any urinary symptoms. No diarrhea. Patient tested negative for COVID 19 PCR. Acute hepatitis screen for A, B, and C was also negative. Heterophile antibody was also negative. Computed tomography scan of the abdomen shows some diffuse fatty infiltration and some splenomegaly. Denies any photophobia. No neck stiffness. Very slight headache. Admitted with-acute CMV infection manifesting with fever, lymphadenopathy, splenomegaly. Today-intermittent fevers present. Did tolerate some diet. Intermittent abdominal pain. Review of systems: Was done for constitutional, cardiovascular, GI, pulmonary. relevant finding as above Active Medications Enoxaparin Sodium (Lovenox) 40 mg SQ DAILY [facility] Last Admin: 08/08/19 09:28 Dose: 40 mg Documented by: Sodium Chloride (Saline 0.9%) 1,000 mls @ 100 mls/hr IV .Q10H [facility] Last Admin: 08/08/19 17:35 Dose: 100 mls/hr Documented by: Ceftriaxone Sodium 2 gm/ (Sodium Chloride) 50 mls @ 100 mls/hr IVPB Q24HR [facility] Last Admin: 08/08/19 09:26 Dose: 100 mls/hr Documented by: Ibuprofen (Motrin) 400 mg PO Q6HR PRN PRN Reason: Mild Pain or Fever > 100.5 Last Admin: 08/08/19 13:29 Dose: 400 mg Documented by: Ketorolac Tromethamine (Toradol) 30 mg IVP Q6HR PRN PRN Reason: Moderate Pain Stop: 08/10/19 18:57 Last Admin: 08/07/19 19:39 Dose: 30 mg Documented by: Naloxone HCl (Narcan) 0.2 mg IV Q2M PRN PRN Reason: Opioid Reversal Ondansetron HCl (Zofran) 4 mg IVP Q8HR PRN PRN Reason: Nausea And Vomiting Last Admin: 08/07/19 08:47 Dose: 4 mg Documented by: Physical examination: VITAL SIGNS: T-max 102 last night, better this morning, 97, 18, 143/85, 95% room air GENERAL: Sitting in a chair, eating, looking much better EYES: Pupils equal. Conjunctiva normal. HEENT: External appearance of nose and ears normal, oral cavity grossly normal both the cheeks are flushed with prominent small blood vessels NECK: JVD not raised; masses not palpable. HEART: First and second heart sounds are normal; no edema. LUNGS: Respiratory rate normal; clear to auscultation. ABDOMEN: Soft, right upper quadrant tenderness, no guarding rigidity, liver spleen not palpable, no masses palpable. PSYCH: Alert and oriented x3; mood and affect anxiousl. LYMPHATICS: Lymph nodes palpable in the supraclavicular regions Investigations: Potassium 4 creatinine 0.73 AST 163 ALT 274 Previous testing Sodium 135 potassium 4.1 creatinine 0.78 AST 229 ALT 338 CMV IgG antibody reactive, CMV IgM antibody reactive Conner-Blue virus capsid antigen IgG positive Assessment and plan: -Acute CMV infection. Patient otherwise in good health. We'll check her immunoglobulin profile the patient is no underlying immunodeficiency. Patient does not report any prior histories of frequent infections.-Slowly improving -Morbid obesity BMI 40.5 -Nonalcoholic fatty liver disease -Hepatitis due to CMV -Sepsis, from CMV infection acute Plan: -Patient had a burger on the table from an outside fast food chain. Request the patient to have more of a simple diet. Given her abdominal symptoms. Repeat labs in the morning LFTs are slowly coming down.
--- NOTE | 2019-08-09 00:30 | PN ---
PROGRESS NOTE DATE OF SERVICE: 08/08/2019 REASON FOR FOLLOWUP: Fever, likely acute CMV and question of cholecystitis. INTERVAL HISTORY: The patient overall fever pattern has improved. The last temperature she had was 101 around 2 in the morning. No fever since then. The patient has been complaining of headache most of her day. No nausea, vomiting. No chest pain, shortness of breath or cough. Abdominal pain has improved. No diarrhea. PHYSICAL EXAMINATION: Blood pressure 107/74 with a pulse of 83, temperature 98.6. She is 95% on room air the patient is a middle-aged female lying in bed in no distress. Respiratory system: Unlabored breathing and is clear to auscultation anteriorly. Heart S1-S2 regular rate and rhythm. ABDOMEN: Soft, no tenderness. LABS: Blood culture has been negative. DIAGNOSTIC IMPRESSION AND PLAN: Patient with a fever, elevated liver exam, likely secondary to acute CMV infection. He did have a normal HIDA scan and concern for possible acalculous cholecystitis. The patient is currently covered with Rocephin 2 g daily to continue and monitor clinical course closely. MMODL / IJN: [id number] /
[2019-08-09] MEDS: IBUPROFEN 400 MG TAB PO PRN (00:36)
[2019-08-09] MEDS: SODIUM CHLORIDE 0.9% 1,000 ML IV SCH ×2 (03:59→12:50)
[2019-08-09 07:33] LABS: ALT 213 U/L (4-34); AST 123 U/L (14-36); African American GFR (CKD) >90 (>60 ml/min/1.73 sqM); Albumin 3.3 g/dL (3.5-5.0); Alkaline Phosphatase 229 U/L (38-126); Anion Gap 6 mmol/L; Bilirubin, Delta 0.2 mg/dL (0.0-0.2); Bilirubin,Unconjugated 0.5 mg/dL (0.0-1.1); Blood Urea Nitrogen 11 mg/dL (7-17); Calcium 8.2 mg/dL (8.4-10.2); Carbon Dioxide 27 mmol/L (22-30); Chloride 101 mmol/L (98-107); Glucose 105 mg/dL (74-99); Non-African American GFR(CKD) >90 (>60 ml/min/1.73 sqM); Potassium 3.9 mmol/L (3.5-5.1); Sodium 134 mmol/L (137-145); Total Bilirubin 0.7 mg/dL (0.2-1.3); Total Protein 6.8 g/dL (6.3-8.2)
[2019-08-09 07:47] LABS: HCT 36.7 % (34.0-46.0); MCH 27.7 pg (25.0-35.0); MCHC 32.6 g/dL (31.0-37.0); MCV 85.1 fL (80.0-100.0); Mean Platelet Volume 7.1; Platelet Count 168 k/uL (150-450); RBC 4.31 m/uL (3.80-5.40); RDW 15.6 % (11.5-15.5); WBC 7.3 k/uL (3.8-10.6)
[2019-08-09] MEDS: ENOXAPARIN 40 MG/0.4 ML SYRINGE SQ SCH (08:52)
[2019-08-09 08:59] LABS: Band Neutrophils % 2 %; Eosinophils # (M) 0.15 k/uL (0-0.7); Lymphocytes # (M) 2.26 k/uL (1.0-4.8); Monocytes # (M) 0.73 k/uL (0-1.0); Neutrophils % (M) 55 %; Nucleated Red Blood Cells 0 /100 WBC (0-0); Total Cells Counted 100
[2019-08-09 09:03] LABS: Reactive Lymphocytes Present
--- NOTE | 2019-08-09 11:48 | P.PN ---
Subjective Progress Note Date: 08/09/19 Principal diagnosis: Abdominal pain Patient doing well today. He did have a fever last night 11.4. White blood cell count normal. Liver enzymes improved. Patient would like to go home today. Objective - Vital Signs Vital signs: Vital Signs Temp 98.0 F 08/09/19 05:35 Pulse 59 L 08/09/19 08:00 Resp 18 08/09/19 08:00 BP 109/67 08/09/19 05:35 Pulse Ox 95 08/09/19 05:35 Intake & Output 08/08/19 08/09/19 08/09/19 18:59 06:59 18:59 Other: Voiding Method Toilet Toilet # Voids 5 6 - Exam Abdomen: Soft, nontender, nondistended - Labs CBC & Chem 7: 08/09/19 06:51 08/09/19 06:51 Labs: Abnormal Lab Results - Last 24 Hours (Table) 08/09/19 08/09/19 Range/Units 06:51 06:51 RDW 15.6 H (11.5-15.5) % Sodium 134 L (137-145) mmol/L Glucose 105 H (74-99) mg/dL Calcium 8.2 L (8.4-10.2) mg/dL AST 123 H (14-36) U/L ALT 213 H (4-34) U/L Alkaline Phosphatase 229 H (38-126) U/L C-Reactive Protein 39.0 H (<10.0) mg/L Albumin 3.3 L (3.5-5.0) g/dL Microbiology - Last 24 Hours (Table) 08/05/19 16:00 Blood Culture - Preliminary Blood No Growth after 72 hours Assessment and Plan (1) CMV (cytomegalovirus infection) Narrative/Plan: Patient clinically improved. No surgical intervention planned. Possible discharge. Current Visit: Yes Status: Acute Code(s): B25.9 - CYTOMEGALOVIRAL DISEASE, UNSPECIFIED SNOMED Code(s): 14051787
[2019-08-09 13:06] VITALS: BP 123/70; PULSE 96; RESP 16
[2019-08-09 14:50] VITALS: TEMP 100.3
--- NOTE | 2019-08-09 15:39 | PN ---
PROGRESS NOTE DATE OF SERVICE: 08/09/2019 REASON FOR FOLLOWUP: Fever, elevated liver enzymes, likely acute CMV. INTERVAL HISTORY: The patient is still running a fever of 101 to 103 degrees Fahrenheit. However, the patient has been feeling better, no vomiting. Right upper quadrant abdominal pain has improved. No chest pain, shortness of breath or cough or diarrhea. PHYSICAL EXAMINATION: Blood pressure 123/70 with a pulse of 96. Temperature 103, she is 98% on room air. General description is a middle-aged female up in the chair in no distress. Respiratory system: Unlabored breathing. Decreased breath sounds at the bases. No wheeze. HEART: S1, S2. Regular rate and rhythm. Abdomen soft, no tenderness. LABS: Hemoglobin is 12, white count 7.3, BUN of 11, creatinine 0.62. Liver enzymes have slightly improved. DIAGNOSTIC IMPRESSION AND PLAN: Patient with fever with elevated liver enzymes, likely secondary to acute CMV infection with IgM antibodies positive. Clinically doubt cholecystitis and fever has not responded to antibiotic which should be easily covered for cholecystitis. Recommend no antibiotic on discharge. The patient has been advised to watch symptoms closely. If she has persistent fever, abdominal pain or vomiting, then she needs to go back to the hospital. Otherwise, try symptomatic treatment for her fever. All questions and concerns were answered in layman's terms. MMODL / IJN: [id number] /
--- NOTE | 2019-08-09 15:54 | PN ---
PROGRESS NOTE DATE OF DICTATION: August 09, 2019 Patient is a 59-year-old pleasant white female admitted to the hospital with vague abdominal pain, low-grade fever and elevated LFTs. Subsequently diagnosed with CMV hepatitis being monitored closely. She continues to have a low-grade fever on a daily basis. Last night it was 101.3. She was seen by Dr. Law and was started on empiric antibiotics yesterday. She reports no new symptoms today. PHYSICAL EXAMINATION: Appears comfortable in no apparent distress. Vital signs stable. Blood pressure is 133/70, pulse rate 96, temperature 103. HEENT examination unremarkable. Conjunctivae pink. Sclerae anicteric. Oral cavity no lesions. NECK no JVD or lymph node enlargement. CHEST was clear to auscultation. HEART: Regular rate and rhythm. ABDOMEN: Soft, bowel sounds are positive. No organomegaly. EXTREMITIES: No pedal edema. SKIN no rashes. NEUROLOGIC: Alert and oriented x3. No focal deficits. LABS: WBC 7.3, hemoglobin 12, platelets normal. Basic metabolic panel is within normal limits. ALT and AST have improved at 123 and 213 respectively, alkaline phosphatase 229, and T-bilirubin is normal. IMPRESSION: 1. Acute CMV hepatitis with gradually improving serum transaminases. 2. Fever secondary to possible acute viral infection. Dr. Law following the patient closely. RECOMMENDATIONS: 1. Monitor LFTs closely. 2. Antibiotics as needed. 3. Advance diet as tolerated. 4. We will follow with you closely. Thank you for this consultation. MMODL / IJN: [id number] /
--- NOTE | 2019-08-09 21:47 | P.DS ---
Providers Date of admission: 08/06/19 17:38 Expected date of discharge: 08/09/19 Attending physician: Quincy Espinal Consults: 08/06/19 12:49 Consult Physician Routine Consulting Provider: Shine Leon Consult Reason/Comments: acute hepatitis Do you want consulting provider notified?: Yes 08/06/19 12:56 Consult Physician Routine Consulting Provider: Lidia Law Consult Reason/Comments: fever with abnormal LFT Do you want consulting provider notified?: Yes 08/06/19 17:24 Consult Physician Routine Consulting Provider: Wallace Weesk Consult Reason/Comments: Fever, abnormal blood smear Do you want consulting provider notified?: Yes 08/07/19 08:25 Consult Physician Routine Consulting Provider: Ean Dodson Consult Reason/Comments: RUQ pain, fever, abnormal HIDA scan Do you want consulting provider notified?: Yes Primary care physician: José Antonio Tamayo [facility] Course: Chief Complaint: Fever, abdominal pain History of presenting complaint: This is a very pleasant 59-year-old patient of Dr. tamayo. Patient presents with tenderness history of having a fever. Denied any respiratory symptoms. We'll repeat 2 days ago developed slight shortness of breath. No cough. Patient's had abdominal pain which she developed on the right upper quadrant for about 4 days she says. Very slight nausea. Not able to keep much food down. No diarrhea. Denies any rash in the body. Patient has rosacea which is slightly more prominent. Patient was here in the ER on July 31. Abdominal ultrasound showed liver to be slightly enlarged. Otherwise no gallstones. Patient had a normal white count count them and also had a normal white count today. Patient has slight elevation of liver enzymes back on July 31. And the liver enzymes as gone up since compared to then. Patient denies any urinary symptoms. No diarrhea. Patient tested negative for COVID 19 PCR. Acute hepatitis screen for A, B, and C was also negative. Heterophile antibody was also negative. Computed tomography scan of the abdomen shows some diffuse fatty infiltration and some splenomegaly. Denies any photophobia. No neck stiffness. Very slight headache. Admitted with-acute CMV infection manifesting with fever, lymphadenopathy, splenomegaly. Today-LFTs continued to improve. Intermittent fevers. Eating much better. Patient very insistent to go home. Had a lengthy talk with the patient. Told to return if any new symptoms occur. Diet was discussed. Discussed with Dr. David from ID. Antibiotics to be discontinued. Discussion and discharge planning more than 35 minutes. Consultation: Dr. Law from ID Dr. Christianson from GI Dr. Weeks from hematology Dr. Dodson from general surgery Physical examination: VITAL SIGNS: 98, 59, 18, 100/67, 95% room air GENERAL: Sitting up bed, comfortable EYES: Pupils equal. Conjunctiva normal. HEENT: External appearance of nose and ears normal, oral cavity grossly normal both the cheeks are flushed with prominent small blood vessels NECK: JVD not raised; masses not palpable. HEART: First and second heart sounds are normal; no edema. LUNGS: Respiratory rate normal; clear to auscultation. ABDOMEN: Soft, much decreased upper quadrant tenderness, no guarding rigidity, liver spleen not palpable, no masses palpable. PSYCH: Alert and oriented x3; mood and affect anxiousl. LYMPHATICS: Lymph nodes palpable in the supraclavicular regions Investigations: White count 7.3 hemoglobin 12 potassium 3.9 AST 123 ALT 213 Previous testing Sodium 135 potassium 4.1 creatinine 0.78 AST 229 ALT 338 CMV IgG antibody reactive, CMV IgM antibody reactive Conner-Blue virus capsid antigen IgG positive Rheumatoid factor-12 any screen negative Assessment and plan: -Acute CMV infection. Patient otherwise in good health. POA -Morbid obesity BMI 40.5 -Nonalcoholic fatty liver disease -Hepatitis due to CMV -Sepsis, from CMV infection acute Disposition: Home Patient Condition at Discharge: Stable Plan - Discharge Summary Discharge Rx Participant: No New Discharge Prescriptions: Continue Ibuprofen 400 mg PO Q4H PRN PRN Reason: Pain Or Fever > 100.5 Discontinued Acetaminophen Tab [Tylenol Tab] 1,000 mg PO Q4H PRN PRN Reason: Pain Or Fever > 100.5 Discharge Medication List Ibuprofen 400 mg PO Q4H PRN 08/01/19 [History] Follow up Appointment(s)/Referral(s): Ean Dodson MD [Medical Doctor] - 2 Weeks (please call and schedule follow up appointment ) Wallace Weeks MD [STAFF PHYSICIAN] - As Needed (Follow-up in the office in about 4-5 weeks Patient to call office for appointment if discharged over the weekend) Yamilex Thurman MD [STAFF PHYSICIAN] - 1 Week José Antonio Tamayo MD [Primary Care Provider] - 1 Week (please call and schedule follow up appointment ) Lidia Law MD [STAFF PHYSICIAN] - 1 Week (please call and schedule follow up appointment ) Patient Instructions/Handouts: Acquired Cytomegalovirus (DC) Activity/Diet/Wound Care/Special Instructions: activity as tolerated low fat diet as tolerated, drink fluids Discharge Disposition: HOME SELF-CARE
[2019-08-10 09:25] LABS: Free Kappa Lt Chain Qnt, Serum 3.41 mg/dL (0.33-1.94)
[2019-08-10 11:51] LABS: T4/T8 Ratio (CD4:CD8) 1.2 (1.0-3.7)
[2019-08-10 14:04] LABS: Albumin 3.41 g/dL (3.80-4.90); Gamma Globulin 1.23 g/dL (0.70-1.50)
[2019-08-10 14:28] LABS: Liver/Kidney Microsome Antibod 1.5 UNITS (<=20)
== END 2019-08-09 14:58 | disposition home or self-care (01) | DRG 872 ==
LOC: EC 14:59 → 1SOBS 18:38 → OBSVTOIN 08-06 17:38 → 5NMEDONC 08-06 21:21
PROVIDERS: ADMIT Hospitalist; ATTEND Hospitalist
DX: A41.89 Other specified sepsis (principal); Z68.41 Body mass index [BMI] 40.0-44.9, adult; B25.1 Cytomegaloviral hepatitis; Z20.828 Contact with and (suspected) exposure to other viral communicable diseases; D70.9 Neutropenia, unspecified; R16.2 Hepatomegaly with splenomegaly, not elsewhere classified; K76.0 Fatty (change of) liver, not elsewhere classified; E66.01 Morbid (severe) obesity due to excess calories; L71.9 Rosacea, unspecified; R59.1 Generalized enlarged lymph nodes; D72.820 Lymphocytosis (symptomatic); Z71.3 Dietary counseling and surveillance; Z85.820 Personal history of malignant melanoma of skin; Z98.890 Other specified postprocedural states; Z88.0 Allergy status to penicillin; Z82.49 Family history of ischemic heart disease and other diseases of the circulatory system
CPT/HCPCS: 36415; 71275; 74177; 78227; 80053; 80074; 80329; 81003; 82103; 82105; 82150; 82248; 82390; 83516; 83540; 83550; 83605; 83690; 83883; 84145; 84165; 85025; 85379; 85610; 85730; 86038; 86140; 86308; 86334; 86355; 86357; 86359; 86360; 86376; 86431; 86644; 86645; 86663; 86664; 86665; 87040; 93005; 96361; 96374; 99285

== ENCOUNTER → 2022-10-10 | Outpatient (CLI) | payer BC ==
--- NOTE | 2022-10-13 19:47 | US ---
EXAMINATION TYPE: US extremity nonvasc mass LT DATE OF EXAM: 10/10/2022 COMPARISON: US 09/11/2018 CLINICAL INDICATION: Female, 62 years old with history of R22.40 LOCALIZED SWELLING, MASS AND LUMP, U NSPECIF; follow up on prior lipoma, pt states getting bigger and painful Technique and findings: Rate Analyst notes: Scanned over the pt's area of concern along the thigh. Images demonstrate a subtle oval echogenic area closely mirroring the echogenicity and pattern of the adjacent subcutaneous fat. This is relegated to the subcutaneous fat layer and measures 4.1 x 3.1 x 1.2cm. This is in comparison to 3.6 x 1.6 x 1.2 cm previously. IMPRESSION: Subtle echogenic area in the subcutaneous fat layer at the patient's palpable site within the left th igh. Imaging characteristics suggest a subcutaneous lipoma measuring 4.1 x 3.1 x 1.2 cm. This does se em to be larger compared to 3.6 x 1.6 x 1.2 cm, previously. If continued growth or if symptomatic, co nsider surgical excision.
== END | disposition home or self-care (01) ==
LOC: RADUSWWP 15:02
PROVIDERS: ATTEND Family Medicine
DX: R22.42 Localized swelling, mass and lump, left lower limb (principal)

== ENCOUNTER → 2023-05-17 | Outpatient (CLI) | payer BC ==
--- NOTE | 2023-05-21 08:46 | MM ---
Reason for Exam: Screening (asymptomatic). Last mammogram was performed 1 year(s) and 1 month(s) ago. Patient History: Menarche at age 14. First Full-Term at age 27. Postmenopausal. Patient used Hormonal Contraceptives for 1 year. Bilateral Reduction. 2010, Bilateral Reduction. Paternal grandmother had breast cancer, age 50. Risk Values: Landy 5 year model risk: 1.6%. NCI Lifetime model risk: 8.1%. Prior Study Comparison: 10/13/2015 Bilateral Screening Mammogram, [facility]. 10/09/2018 Bilateral Screening Mammogram, [facility]. 04/26/2022 Bilateral MG 3D screening mammo w/cad, [facility]. Tissue Density: The breasts are heterogeneously dense, which may obscure small masses. Findings: There is no suspicious group of microcalcifications or new suspicious mass. Overall Assessment: Negative, BI-RAD 1 Management: Screening Mammogram of both breasts in [address] [facility] will attempt to contact patient to return for supplemental views and ultrasound if indicated. Patient should continue monthly self-breast exams. A clinical breast exam by your physician is recommended on an annual basis. This exam should not preclude additional follow-up of suspicious palpable abnormalities. Note on Landy scores and lifetime risk: 1. A Landy score greater than 3% is considered moderate risk. If this is the case, consider specialist referral to assess eligibility for a risk reducing agent. 2. If overall lifetime risk for the development of breast cancer is 20% or higher, the patient may qualify for future screening with alternating mammogram and breast MRI. Electronically signed and approved by: Marcelo Katz DO
== END | disposition home or self-care (01) ==
LOC: RADMAMWWP 07:02
PROVIDERS: ATTEND Family Medicine
DX: Z12.31 Encounter for screening mammogram for malignant neoplasm of breast (principal); Z80.3 Family history of malignant neoplasm of breast; Z78.0 Asymptomatic menopausal state
CPT/HCPCS: 77063; 77067